=== PATIENT | male | born 2005 | race Hispanic/Latino ===

== ENCOUNTER 2024-09-10 22:02 | Inpatient (IN) | payer OTHER, SELFPAY ==
[2024-09-10 18:55] VITALS: BP 108/58
[2024-09-10 19:21] VITALS: BMI 25.8
--- NOTE | 2024-09-10 19:37 | ED.GENMED ---
History of Present Illness
General
Chief Complaint: Cold/Flu/URI Symptoms
Source: patient
Exam Limitations: none
Time Seen by Provider: 09/10/24 19:09
History of Present Illness
History of Present Illness:
This is a 19 year old male that comes in with c/o fever and cough. States that he has had a fever for 3 days with a cough. States that he gets SOB and has some chest discomfort with breathing. States that he had chills with the fever and a little
diarrhea today. States that he has a headache with occasional dizziness. States that he went to yesterday and they gave him Amoxicillin for which he has had 2 doses. Denies any abd pain, nausea, vomiting, urinary burning.
Past History
Past History
ED Past Medical History: None; Negative Asthma, HTN, Hypercholesterolemia or NIDDM
ED Past Surgical History: None
Social History
Tobacco: Non-smoker
Alcohol: None
Personal: Single
Living: with family
Review of Systems
Review of Systems
All Other Systems: ROS reviewed and negative except as documented in HPI and ROS
Constitutional: Reports fever and chills
EENT: Reports no symptoms
Respiratory: Reports cough and trouble breathing
Cardiac: Reports chest pain (with breathing and coughing)
ABD/GI: Reports diarrhea; Denies abdominal pain, nausea or vomiting
: Reports no symptoms; Denies dysuria, frequency or urgency
Musculoskeletal: Reports no symptoms
Skin: Reports no symptoms
Neurological: Reports dizzy (occasional) and headache
Psychiatric: Reports no symptoms
Phy Exam
General Physical Exam
General Presentation: mild distress
General age: appears stated age
General Skin: warm, dry and pale
General Habitus: normal
General Mental: alert
General Hydration: appears well hydrated
ENT Exam
ENT Exam: TM's normal, pharynx normal and neck supple
Eye Exam
Eye Exam: EOMI
Cardiovascular Exam
Cardiovascular Exam: no edema, no murmur, normal peripheral pulses and tachycardia
Pulmonary Exam
Pulmonary Exam: lungs clear, no respiratory distress, no rales, chest non tender, no crackles, no rhonchi, no wheezing and other (Dry cough noted)
Gastrointestinal Exam
Gastrointestinal Exam: normal bowel sounds, non tender, soft, no organomegaly, no pulsatile mass and non distended
Musculoskeletal Exam
Musculoskeletal Exam: full ROM and no edema
Skin Exam
Skin Exam: warm/dry, no rash, no petechia and pallor
Psychiatric Exam
Psychiatric Exam: normal mood/affect
Sepsis
Sepsis Screening
Sepsis Assessment: Sepsis Ruled Out
Sepsis Screen
Sepsis Screen: Sepsis Ruled Out
Date: 09/10/24
Time: 20:59
Course
Orders/Labs/Results
Orders:
Orders
09/10/24 19:36
0.9% Sodium Chloride 1000 ml [Nss] 1,000 ml IV BOLUS
Acetaminophen [Tylenol] 1,000 mg PO NOW STA
CR Chest - 2 Views Urgent
Comment:
Reason For Exam: Fever, cough
09/10/24 19:40
COVID-19 Antigen Urgent
Source: Nasal Swab
Complete Blood Count/With Diff Urgent
Comprehensive Metabolic Panel Urgent
Influenza A+B Rapid Molecular Urgent
MATTIE Source: Nasal Swab
Specimen Description:
09/10/24 19:44
Lactic Acid Urgent
Abnormal Lab Results
09/10/24
19:40
Hct 37.2 L %
(39.0-52.0)
MCV 79.1 L fL
(80.0-94.0)
MPV 11.1 H fL
(7.4-10.4)
Absolute Neuts (auto) 8.7 H 10^3/uL
(1.4-6.5)
Absolute Lymphs (auto) 0.7 L 10^3/uL
(1.2-3.4)
Neutrophils % 86.6 H %
(42.2-75.2)
Lymphocytes % 7.0 L %
(20.5-51.1)
Carbon Dioxide 18 L mmol/L
(22-30)
Creatinine 0.6 L mg/dL
(0.7-1.3)
Glucose 130 H mg/dl
(70-99)
SARS-CoV-2 Antigen Positive A
(Negative)
09/10/24 19:40
09/10/24 19:40
Hyperglycemia. Positive for COVID, Carbon dioxide low. Anion gap 14, Lactic acid normal at 1.9
Vital Signs
Initial and Last Documented VS:
Initial Vital Signs
Temp Pulse Resp BP Pulse Ox
103 F H 130 20 108/58 95
09/10/24 18:55 09/10/24 18:55 09/10/24 18:55 09/10/24 18:55 09/10/24 18:55
Last Documented Vital Signs
Temp Pulse Resp BP Pulse Ox
103 F H 120 38 108/58 95
09/10/24 18:55 09/10/24 19:45 09/10/24 19:45 09/10/24 18:55 09/10/24 19:45
MDM/Problems Addressed
Differential Diagnosis Includes:
PNA, COVID, Influenza,
MDM/Problems Addressed:
This is a 19 year old male that comes in with c/o fever and cough. States that this started 3 days ago. Patient went to yesterday and was given Amoxicillin. States that he is SOB with the coughing.
will check labs, chest x-ray, COVID and influenza. Will give IV fluids and Tylenol.
back into see patient. Explained that his Chest x-ray shows that he has a left lower and middle lobe Pneumonia. Patient may also have new onset Diabetes. states that his mom is a diabetic. Will start on IV antibiotics and admit patient.
Hospitalist notified.
Chronic conditions affecting care:
NA
Acute Exacerbation and/or Progression of Chronic Illness:
NA
*Radiology
Radiology exam reviewed: radiology read reviewed (Chest-severe left lower lobe pneumonia. Moderate left upuper lobe Pneumonia. Moderate scoliotic curvature of the thoracolumbar spine)
*Pulse Oximetry
Patient hypoxic: no
*EKG
Interpreted by ED Provider?: NA
Rate: EKG- N/A
*Roll On Worker Interpretation
Rate: tachycardiac
Heart Rate: 126
Rhythm: sinus tachycardia
*Critical Care Note
Total Time (30-74mins, 75-104mins- exclusive of procedures): Not Applicable
ED Attending Note
-
Portions of this chart may have been created with voice recognition software.� Occasional wrong word or��sound alike� substitutions may have occurred due to the inherent limitations of voice recognition software.
Discharge Plan
Departure
Patient Disposition: Admit
Date of Disposition: 09/10/24
Time of Disposition: 20:57
Admit to: Med/Surg
Presentation/result/management discussed w/ accepting MD/DO: Hospitalist
Patient with high blood pressure during this ER visit?: No
Condition: Good
Discharge Problem:
Left lower and middle Pneumonia, COVID, Acute hyperglycemia
Referrals:
UNKNOWN - PT DOES,NOT KNOW [Family Provider] -
Interventions
Interventions:
*Risk Screen - Suicide Last Done: 09/10/24 19:21
*General Assessment Last Done: 09/10/24 18:55
*Neglect/Abuse Screening Last Done: 09/10/24 19:21
ED- Fall Risk Assessment Last Done: 09/10/24 19:21
*ED COVID-19 Vaccine History Last Done: 09/10/24 18:55
ED- Pulmonary Assessment Last Done: 09/10/24 19:21
Discharge Date and Time
Print Language: ICELANDIC
[2024-09-10] MEDS: NSS 1000 IV ×3 (19:39→23:11)
[2024-09-10] MEDS: TYLENOL 1000 MG PO (19:43)
[2024-09-10 19:46] LABS: % Basophils 0.2 % (0-2); % Immature Granulocytes 0.3 % (0-0.5); % Monocytes 5.9 % (1.7-9.3); % Neutrophils 86.6 % (42.2-75.2); Absolute Lymphocytes 0.7 10^3/uL (1.2-3.4); Absolute Monocytes 0.6 10^3/uL (0.1-0.6); Absolute Neutrophils 8.7 10^3/uL (1.4-6.5); Hematocrit 37.2 % (39.0-52.0); Hemoglobin 13.7 g/dL (13.0-18.0); Mean Corp Hgb Conc. 36.8 g/dL (33.0-37.0); Mean Corpuscular Hgb 29.1 pg (27.0-31.0); Mean Corpuscular Volume 79.1 fL (80.0-94.0); Mean Platelet Volume 11.1 fL (7.4-10.4); Nucleated Red Blood Cells % 0 % (-); Platelet Count 168 10^3/uL (130-400); Red Cell Dist. Width 12.6 % (11.5-14.5); White Blood Cell Count 10.1 10^3/uL (4.8-10.8)
[2024-09-10 20:03] LABS: COVID-19 Antigen Positive (Negative)
[2024-09-10 20:09] LABS: Lactic Acid 1.9 mmol/L (0.7-2.0)
[2024-09-10 20:13] LABS: ALT (SGPT) 36 U/L (0-50); AST (SGOT) 44 U/L (17-59); Alkaline Phosphatase 53 U/L (38-126); Blood Urea Nitrogen 10 mg/dl (9-20); Calcium 8.7 mg/dl (8.4-10.2); Carbon Dioxide 18 mmol/L (22-30); Chloride 103 mmol/L (98-107); Estimated Creatinine Clearance > 125 ml/min; Glucose 130 mg/dl (70-99); Potassium 3.6 mmol/L (3.5-5.1); Sodium 135 mmol/L (135-145); Total Bilirubin 1.3 mg/dl (0.2-1.3); Total Protein 6.7 g/dl (6.3-8.2); eGFR > 60.00
[2024-09-10 20:24] VITALS: BP 103/63
[2024-09-10 21:00] VITALS: BP 110/65
--- NOTE | 2024-09-10 21:20 | HPS.HSE ---
Family Physician
-
Family Physician: NOT KNOW UNKNOWN - PT DOES
Chief Complaint
-
Cough and Shortness of Breath
History of Present Illness
Patient is a 19 y/o male past medical history of scoliosis who presents with cough, shortness of breath and fever. Patient reports symptoms started about 3 days ago. He was seen at an urgent care yesterday and he was prescribed Augmentin. He notes
symptoms worsened prompting him to come to the emergency department for evaluation. He reports cough is mostly dry. He reports significant shortness of breath, and some dizziness. In the ED he was found to have a feers of 103F. He denies history
of asthma, or other lung conditions. He denies smoking or vaping.
Medical History
Past Medical History
Past Medical History: Reports Other
Additional Past Medical History:
Scoliosis
Past Surgical History: Reports None
Social History
Tobacco: Non-smoker
Alcohol: None
Drug: None
Family History
Family History: Other (Mother: DM)
Allergies / Home Medications
Allergies reflects when Allergies were last updated in [facility].
Home Medications with original date entered in [facility]
Allergy/Medication List:
Allergies
Allergy/AdvReac Type Severity Reaction Status Date / Time
No Known Allergies Allergy Unverified 01/04/11 19:14
Home Medications
amoxicillin 875 mg-potassium clavulanate 125 mg tablet 1 tab PO BID 09/10/24
dextromethorphan-guaifenesin ER 60 mg-1,200 mg tab,extend release,12hr (Mucinex DM) 1 tab PO Q12H 09/10/24
ibuprofen 200 mg tablet (Advil) 400 mg PO Q6HPRN PRN mild pain/fever 09/10/24
Review of Systems
-
Unable to obtain full review of systems at this time due to: Acuity
Constitutional: Reports Fever
Respiratory: Reports Cough and Trouble Breathing
Cardiac: Denies Chest Pain or Palpitations
Physical Exam
Vital Signs
Vital Signs
Temp Pulse Resp BP Pulse Ox
103 F H 108 35 103/63 95
09/10/24 18:55 09/10/24 20:45 09/10/24 20:45 09/10/24 20:24 09/10/24 20:45
Physical Exam
General: Well Developed, Well Nourished and Respiratory Distress (Notable Tachypnea, Significant conversational dyspnea)
HEENT: NormoCephalic, Atraumatic and Oxygen (Nasal Cannula at 2-3L)
Respiratory: Rhonchi (Particularly on the left) and Crackles (Bilaterally)
Cardiac: S1/S2 and Regular Rhythm
GI: Soft and Non Tender
Rectal: Deferred by Provider
Musculoskeletal: No Clubbing, No Cyanosis and No Edema
Skin: Warm and Dry
Neuro: Awake, Alert, Oriented and Nonfocal/grossly intact
Psych: Calm
Laboratory Results
-
09/10/24 19:40
09/10/24 19:40
Laboratory Results
Lactic Acid 1.9 mmol/L (0.7-2.0) 09/10/24 19:44
Total Bilirubin 1.3 mg/dl (0.2-1.3) 09/10/24 19:40
AST 44 U/L (17-59) 09/10/24 19:40
ALT 36 U/L (0-50) 09/10/24 19:40
Alkaline Phosphatase 53 U/L (38-126) 09/10/24 19:40
Data Reviewed
-
Diagnostic Radiology: Report Reviewed by me
Lab Data: Labs Reviewed by me
Impression/Plan
-
Sepsis secondary to Pneumonia, suspect COVID-19 viral pneumonia with possible super-imposed bacteria pneumonia
-Consult Pulmonary and Infectious Disease
-Check procalcitonin
-Continue supplemental oxygen
-Continue ceftriaxone and azithromycin
-Continue Decadron
-Consider Remdesivir - Will defer decision to Pulmonary/ID
DVT proph: Lovenox
Code Status: Full Code
--- NOTE | 2024-09-10 21:42 | W.PN.UPDATE ---
Update Note
Progress Note Update
This note serves as an addendum to the H&P by counterintelligence/humint specialist DANNY sivan HUGHES
HPI
19M Non smoker No significant PMHX seen at ER:
- fever for 3 days with a dry cough
- associated SOB and has some chest discomfort with breathing.
- POS chills with the fever and a little diarrhea today.
- headache with occasional dizziness
Seen [facility] yesterday and they gave him Amoxicillin for which he has had 2 doses.
ROS : Denies any abd pain, nausea, vomiting, urinary burning.
Reviewed VS:
Vital Signs
Temp Pulse Resp BP Pulse Ox
103 F H 113 30 110/65 95
09/10/24 18:55 09/10/24 21:30 09/10/24 21:30 09/10/24 21:00 09/10/24 21:30
PE
Gen: toxic looking , dyspnic with speech
HEENT: anicteric
Neck: supple
Lungs: tachypnic , symmetric AE, extensive ronchii at Lt chest
Cor: tacycardic S1 S2
Abdomen: benign exam
BATCH DUMPER: AAO3
MS: no edema
Psych: approrpriate
Data
09/10/24
19:40
WBC 10.1
Hgb 13.7
Plt Count 168
Carbon Dioxide 18 L
Creatinine 0.6 L
eGFR > 60.00
SARS-CoV-2 Antigen Positive A
09/10/24 09/10/24 09/10/24
19:40 19:44 21:25
Lactic Acid 1.9
Total Bilirubin 1.3
AST 44
ALT 36
Alkaline Phosphatase 53
Procalcitonin Pending
CXR:
1. SEVERE LEFT LOWER LOBE PNEUMONIA.
2. Moderate left upper lobe pneumonia.
3. Moderate scoliotic curvature of the thoracolumbar spine
ASSESSMENT & PLAN
Sepsis due to acute viral Covid illness: Onset Day 3
Acute viral Covid syndrome
PNA suspect viral rather than secondary bacterial infection
Acute Hypoxic RF due to PNA on 2 L NCx in low 90s
Dyspneic with speech
Vax HX: last vax was 2021. No booster since
- Titrate O2 to keep POx > 94
- IV Decadron 6mg daily
- Empiric IV CFTX and Azithromycin
- can check PCT but suspect will be elevated
- Pul and ID consult for indication of Remdesivir ?
HX Scoliosis ? underlying restrictive lug dz
DVT Px: LMWH
Full code
IMU
[2024-09-10 22:00] VITALS: BP 114/63
[2024-09-10] MEDS: ROCEPHIN 1000 MG IV (22:11)
[2024-09-10] MEDS: DECADRON 6 MG IV (22:15)
[2024-09-10] MEDS: ZITHROMAX INFUSION 250 IV (22:17)
[2024-09-10 22:57] LABS: Procalcitonin 0.59 ng/ml (0.0-0.25)
[2024-09-10 23:02] VITALS: BP 107/67
--- NOTE | 2024-09-10 23:30 | PTCARENOTE ---
Pt arriving from ED on 2L NC SPO2 94%. Upon exertion Pt becoming dyspneic and tachycardic into the 120's. Pt AAOx3. Education given. Pt has no complaints at this time. Call quezada within reach.
[2024-09-11] VITALS (15 sets, daily range): BP systolic 90–137; BP diastolic 61–88; PULSE 93–108; BMI 26.2
[2024-09-11 04:40] LABS: % Basophils 0.1 % (0-2); % Immature Granulocytes 0.4 % (0-0.5); % Lymphocytes 5.6 % (20.5-51.1); % Monocytes 3.3 % (1.7-9.3); % Neutrophils 90.6 % (42.2-75.2); Absolute Lymphocytes 0.5 10^3/uL (1.2-3.4); Absolute Monocytes 0.3 10^3/uL (0.1-0.6); Absolute Neutrophils 7.2 10^3/uL (1.4-6.5); Hematocrit 35.9 % (39.0-52.0); Hemoglobin 12.9 g/dL (13.0-18.0); Mean Corp Hgb Conc. 35.9 g/dL (33.0-37.0); Mean Corpuscular Hgb 29.6 pg (27.0-31.0); Mean Corpuscular Volume 82.3 fL (80.0-94.0); Mean Platelet Volume 10.9 fL (7.4-10.4); Nucleated Red Blood Cells % 0 % (-); Platelet Count 153 10^3/uL (130-400); Red Blood Cell Count 4.36 10^6/uL (4.70-6.10); Red Cell Dist. Width 12.7 % (11.5-14.5)
[2024-09-11 05:01] LABS: Blood Urea Nitrogen 8 mg/dl (9-20); Calcium 8.1 mg/dl (8.4-10.2); Carbon Dioxide 17 mmol/L (22-30); Chloride 107 mmol/L (98-107); Estimated Creatinine Clearance > 125 ml/min; Glucose 141 mg/dl (70-99); Potassium 3.9 mmol/L (3.5-5.1); Sodium 139 mmol/L (135-145); eGFR > 60.00
--- NOTE | 2024-09-11 07:58 | W.PN.HOSP.TC ---
Today's Communication/Plan
-
see plan
Assessment / Plan
Assessment / Plan
Sepsis secondary to Pneumonia, suspect COVID-19 viral pneumonia with possible super-imposed bacteria pneumonia
-Consult Pulmonary and Infectious Disease
-Procalcitonin 0.59
-Continue supplemental oxygen
-Continue ceftriaxone and azithromycin
-Continue Decadron
-Consider Remdesivir - Will defer decision to Pulmonary/ID
DVT proph: Lovenox
Code Status: Full Code
Anticipated Discharge: 24 - 48 hours
Subjective/Interval History
-
Date of Service: September 11, 2024
feeling ok
significant cough with inspiration
no further fevers overnight
Objective Data
-
Labs:
Laboratory Results
09/10/24 09/11/24
19:40 04:21
WBC 8.0
Hgb 12.9 L
Hct 35.9 L
Plt Count 153
Sodium 135 139
Potassium 3.6 3.9
Chloride 103 107
Carbon Dioxide 18 L 17 L
BUN 10 8 L
Creatinine 0.6 L 0.5 L
Glucose 130 H 141 H
Calcium 8.7 8.1 L
Total Bilirubin 1.3
AST 44
ALT 36
Alkaline Phosphatase 53
Vital Signs:
Vital Signs
Temp Pulse Resp BP Pulse Ox
99.1 F 99 30 118/69 95
09/11/24 03:45 09/11/24 06:00 09/11/24 06:00 09/11/24 06:00 09/11/24 06:00
I&O
09/10/24 09/11/24 09/12/24
06:59 06:59 06:59
Intake Total 1780 / 1780
Output Total 500 / 500
Balance 1280 / 1280
Review of Systems
-
History Source: Patient
All other systems: Reviewed and negative
Physical Exam
-
General: No Apparent Distress and Other (frequent cough)
HEENT: PERRLA
Respiratory: Other (cough with inspiration, no wheezing)
Cardiac: Regular Rhythm and S1/S2
GI: Soft and Nontender
Musculoskeletal: No Edema
Skin: Warm and Dry; Negative Rash
Neuro: AO x 3
Psych: Calm
Data Reviewed
-
Diagnostic Radiology: Report Reviewed by me
Labs: Labs Reviewed by me
[2024-09-11] MEDS: TYLENOL 650 MG PO (08:28)
[2024-09-11] MEDS: MUCINEX 600 MG PO ×2 (08:29→21:50)
[2024-09-11] MEDS: DECADRON 6 MG PO (08:29)
[2024-09-11] MEDS: TESSALON PERLES 200 MG PO (08:30)
--- NOTE | 2024-09-11 09:30 | CON.ID ---
Addendum entered and electronically signed by Esteban Hernandez, 09/11/24 11:27:
I personally performed a history and physical exam of the patient and discussed management with the resident. I reviewed the resident's note and agree with the documented findings and plan of care HPI/CC.
No history of hemoptysis. Minimal sputum at present. Reports sisters also with upper respiratory tract infection symptoms.
Currently appears comfortable.
Continue with current antimicrobial therapy (ceftriaxone/Azithromycin).
Will begin Paxlovid.
Check Legionella and pneumococcal urinary antigens.
Await sputum culture.
Original Note:
Chief Complaint / Past History
Chief Complaint
Cough and shortness of breath
History of Present Illness
This is a 19 year old male patient with PMH scoliosis who presented to the ED with SOB, fever and cough. He states that he had a non productive cough and difficulty breathing 3 days ago which had prompted him to go to the urgent care. At , he had
a COVID test done (which was negative) along with being given Augmentin. When he found that he did not improve this prompted him to arrive to ED.
Upon arrival, he was found to have a fever of 103. CXR showed severe left lobe pneumonia with moderate left upper lobe pneumonia. COVID testing was positive. He denies any chills, abdominal pain, nausea or vomiting. His past vaccination history for
COVID was last in 2021 with no boosters since then.
Past History
Past Medical History: Other (Scoliosis)
Past Surgical History: None
Allergy History:
No Known Allergies Allergy (Unverified 01/04/11 19:14)
Social History
Tobacco: Non-Smoker
Alcohol: None
Drug: None
Family History
Family History: Not Pertinent
Review of Systems
Vital Signs
Temp Pulse Resp BP Pulse Ox
98.6 F 99 30 118/69 95
09/11/24 07:48 09/11/24 06:00 09/11/24 06:00 09/11/24 06:00 09/11/24 06:00
Physical Exam
Lab / Diagnostic Study Results
09/11/24 04:21
09/11/24 04:21
Abs Immat Gran (auto) 0.0 10^3/uL (0-0.05) 09/11/24 04:21
Absolute Neuts (auto) 7.2 10^3/uL (1.4-6.5) H 09/11/24 04:21
Absolute Lymphs (auto) 0.5 10^3/uL (1.2-3.4) L 09/11/24 04:21
Absolute Monos (auto) 0.3 10^3/uL (0.1-0.6) 09/11/24 04:21
Absolute Basos (auto) 0.0 10^3/uL (0-0.2) 09/11/24 04:21
Immature Gran % 0.4 % (0-0.5) 09/11/24 04:21
Neutrophils % 90.6 % (42.2-75.2) H 09/11/24 04:21
Lymphocytes % 5.6 % (20.5-51.1) L 09/11/24 04:21
Monocytes % 3.3 % (1.7-9.3) 09/11/24 04:21
Eosinophils % 0.0 % (0-6) 09/11/24 04:21
Basophils % 0.1 % (0-2) 09/11/24 04:21
Lactic Acid 1.9 mmol/L (0.7-2.0) 09/10/24 19:44
Procalcitonin 0.59 ng/ml (0.0-0.25) H 09/10/24 22:08
Microbiology Results
Micro:
09/10/24 19:40 Influenza Types A & B (DENNY) - Final
Nasal Swab Negative for Influenza A & B, NAAT
Negative results must be combined with clinical observations
and patient history.
Nucleic Acid Amplification test (NAAT)performed on the
[employer] platform.
Assessment / Plan
Sepsis secondary to pneumonia�possible COVID-19 viral pneumonia with ?secondary bacterial cause
Febrile
Scoliosis
Recommendations:
-Afebrile at the time of exam
-Vaccination history: Last vaccination was in 2021 with no booster since
� White blood count within normal limits, lactic acid 1.9
� CXR: Severe left lower lobe pneumonia, moderate left upper lobe pneumonia
� Inititally started on IV ceftriaxone and azithromycin and decadron
- Sputum culture pending though pt not actively with productive cough
--- NOTE | 2024-09-11 10:43 | CON.PUL ---
Consultation
Consultation Request
Date/Time Consultation Requested: 09/11/2024-8 AM
Date/Time Consultation Performed: 09/11/2024-8:30 AM
Requesting Provider: Hospitalist
Performing Provider: Dr. Lim
Reason for Consultation: Pneumonia
Medical History
-
Chief Complaint: Shortness of breath and cough
History of Present Illness:
19-year-old male with 1 prior COVID-vaccine, never having COVID presents with cough and shortness of breath as well as fever 3 days prior to admission found to have pneumonia-pulmonary consulted for pneumonia/COVID 09/11/2024.. The patient states
that he had fevers, chills, nonproductive cough, occasionally productive, shortness of breath as well as fevers at home. He was prescribed Augmentin. He came to the emergency room and continued to have mostly a dry nonproductive cough with
shortness of breath and some dizziness. He had a fever of 103. He denies any chest pain, pleurisy, hemoptysis, abdominal pain, nausea, weakness, unintentional weight loss, leg swelling.
Past Medical History
Past Medical History: None (Specifically no history of hypertension, hyperlipidemia, coronary, pulmonary, renal, gastrointestinal or neurologic conditions)
Past Surgical History: None
Social History
Tobacco: Non-smoker
Alcohol: None
Drug: None
Living: With Family
Occupational Exposures: No known asbestos exposure
Environmental Exposures: No known tuberculosis exposure
Family History
Family History: Other (Mother-diabetes)
Allergies / Home Medications
Allergies
Allergy/AdvReac Type Severity Reaction Status Date / Time
No Known Allergies Allergy Unverified 01/04/11 19:14
Home Medications
�Medication �Instructions �Recorded �Confirmed �Last Taken �Type
amoxicillin 875 mg-potassium 1 tab PO BID Infection 09/10/24 09/10/24 09/10/24 History
clavulanate 125 mg tablet
dextromethorphan-guaifenesin ER 60 1 tab PO Q12H Cough 09/10/24 09/10/24 09/10/24 History
mg-1,200 mg tab,extend
release,12hr (Mucinex DM)
ibuprofen 200 mg tablet (Advil) 400 mg PO Q6HPRN PRN mild 09/10/24 09/10/24 09/10/24 History
pain/fever
Review of Systems
-
Unable to Obtain full review of systems at this time due to: Other (Per HPI)
Vitals / Labs / Diagnostic Testing
Vital Signs
Temp Pulse Resp BP Pulse Ox
98.6 F 99 30 118/69 95
09/11/24 07:48 09/11/24 06:00 09/11/24 06:00 09/11/24 06:00 09/11/24 06:00
Lab Data
09/11/24 04:21
09/11/24 04:21
Microbiology
09/10/24 19:40 Nasal Swab Influenza Types A & B (DENNY) - Final
Negative for Influenza A & B, NAAT
Negative results must be combined with clinical observations
and patient history.
Nucleic Acid Amplification test (NAAT)performed on the
[employer] platform.
Diagnostic Testing:
Physical Exam
-
Exam:
Well-nourished and well-developed in no apparent distress
HEENT-atraumatic, normocephalic
Neck-supple, no JVD, no bruit
Heart-regular rate and rhythm-no murmurs, rubs or gallops
Chest with crackles at the bases and few rhonchi
Back without tenderness
Abdomen-soft, nontender, nondistended, no hepatosplenomegaly
Extremities-no cyanosis, clubbing, edema and good peripheral pulses
Integument-intact, no rashes, lesions or ecchymosis
Neurology-alert and oriented, nonfocal motor and sensory exam
Assessment
-
19-year-old male with 1 prior COVID-vaccine, never having COVID presents with cough and shortness of breath as well as fever 3 days prior to admission found to have pneumonia-pulmonary consulted for pneumonia/COVID 09/11/2024.
Mpzfgbkdi-wppnpebzq-uygfkdls
COVID positive-09/10/2024
Lymphopenia
Hyperglycemia
Metabolic acidosis
Conditions present prior to admission:
None
Plan
Respiratory decompensation likely due to underlying COVID infection with subsequent bacterial [id number]-[id number]-[id number]
Supplemental oxygen as needed
Mucolytics
Nebulizers if needed
Aspiration precautions
Follow radiographically
Check cultures
Ceftriaxone and azithromycin initiated
Influenza negative
Sputum culture if able to produce
Decadron 6 mg IV daily initiated
Suspect pneumonia is bacterial and minimally viral-consider Paxlovid-or observe off antivirals
Infectious disease consultation pending
Monitor blood sugar
Insulin supplementation as needed
DVT prophylaxis-on Lovenox
Nutrition
Early mobilization
Outpatient pulmonary follow-up to ensure radiographic clearing
Diagnostic data:
Chest x-ray 09/10/2024-left lower lobe pneumonia, moderate left upper lobe pneumonia
Data Reviewed
-
Radiology: Image personally visualized and interpreted and Report reviewed by me
Medical Tests (Nuc Med, Echo etc): Report reviewed by me
Labs: Labs reviewed by me
Old Records: Reviewed
Total Time Spent with Patient (in minutes): 55
[2024-09-11] MEDS: PAXLOVID 2X150 MG-100 MG DOSE PACK 1 DOSE PO ×2 (12:16→21:51)
--- NOTE | 2024-09-11 12:29 | PTCARENOTE ---
Patient is on room air at this time, puulse ox 95%. Paxlovid dose administered. Patient is compliant with medication regimen. Good appetite. Pain on abdomen when coughing relieved with Tylenol. Family at bedside.
--- NOTE | 2024-09-11 12:45 | CM ---
Patient who is Covid +. Room air. Receiving Paxlovid, IV Abx.
Spoke with patient who resides with his parents in a one story house.
He was independent in ADLs & ambulation.
The patient was active and was attending [employer] studying Biology.
He does not drive.
The patient has no DME.
He has no PCP and goes to [facility].
Pharmacy - [facility] [address], [place]
Noting self pay status.
Spoke with Anita [facility]; patient completed MA application that she will be submitting today. She feels he is likely to qualify for MA.
Patient denies any food/housing/utility or transportation insecurities.
No CM d/c needs identified.
Plan home.
--- NOTE | 2024-09-11 15:13 | PTCARENOTE ---
Patient asked to go to the bathroom. Nurse walked patient to the bathroom and he had an unsteady gait. Nurse asked family about his unsteadiness and the family stated that this started as he was an adult, stated 'he is a patient of Raevn Esqueda.'.
Notified Dr. Chu of ambulatory issues. PT consulted and orthostatics will be completed.
[2024-09-11] MEDS: NSS 500 IV (15:37)
[2024-09-11 17:40] LABS: Vitamin B12 313 pg/ml (239-931)
[2024-09-11] MEDS: LOVENOX 40 MG SC (21:50)
[2024-09-11] MEDS: ROCEPHIN 1000 MG IV (21:52)
[2024-09-11] MEDS: STERILE WATER FOR INJECTION 10 ML IV (21:52)
[2024-09-11] MEDS: ZITHROMAX INFUSION 250 IV (21:53)
[2024-09-12] VITALS (11 sets, daily range): BP systolic 86–128; BP diastolic 65–80; PULSE 96; O2SAT 93
--- NOTE | 2024-09-12 02:20 | PTCARENOTE ---
Pt mother stayed with Pt throughout night. Pt had no complaints of pain at this time. Pt vitals remaining stable at this time. PT SPO2 94% on 3L NC. Pt cough is frequent. Call quezada within reach. Assessment care and vitals as charted.
[2024-09-12 06:47] LABS: Blood Urea Nitrogen 13 mg/dl (9-20); Calcium 8.6 mg/dl (8.4-10.2); Carbon Dioxide 22 mmol/L (22-30); Chloride 106 mmol/L (98-107); Estimated Creatinine Clearance > 125 ml/min; Glucose 129 mg/dl (70-99); Potassium 4.2 mmol/L (3.5-5.1); Sodium 141 mmol/L (135-145); eGFR > 60.00
--- NOTE | 2024-09-12 08:32 | W.PN.HOSP.TC ---
Today's Communication/Plan
-
approaching DC
PT Eval
continue Decadron and Paxlovid
Assessment / Plan
Assessment / Plan
Sepsis secondary to Pneumonia, suspect COVID-19 viral pneumonia with possible super-imposed bacteria pneumonia
-Consult Pulmonary and Infectious Disease
-Procalcitonin 0.59
-now off oxygen
-Continue ceftriaxone and azithromycin
-Continue Decadron
-continue Paxlovid
Ambulatory Dysfunction
-patient reports an abnormal gait since puberty, does not feel it is worse
-likely exacerbated with current illness
-obtain PT eval to assess further work-up. On exam patient with 5/5 upper and lower extremity strength
DVT proph: Lovenox
Code Status: Full Code
Anticipated Discharge: Within 24 hours
Subjective/Interval History
-
Date of Service: September 12, 2024
feeling better today
cough persistent
Objective Data
-
Labs:
Laboratory Results
09/12/24 09/12/24
04:51 06:05
Sodium Cancelled 141
Potassium Cancelled 4.2
Chloride Cancelled 106
Carbon Dioxide Cancelled 22
BUN Cancelled 13
Creatinine Cancelled 0.5 L
Glucose Cancelled 129 H
Calcium Cancelled 8.6
Vital Signs:
Vital Signs
Temp Pulse Resp BP Pulse Ox
97.5 F 88 24 122/68 93
09/12/24 07:30 09/12/24 08:00 09/12/24 08:00 09/12/24 08:00 09/12/24 08:00
I&O
09/11/24 09/12/24 09/13/24
06:59 06:59 06:59
Intake Total 1780 / 1780 2470 / 2470
Output Total 500 / 500 2900 / 2900
Balance 1280 / 1280 -430 / -430
Review of Systems
-
History Source: Patient
All other systems: Reviewed and negative
Physical Exam
-
General: No Apparent Distress and Other (frequent cough)
HEENT: PERRLA
Respiratory: Other (cough with inspiration, no wheezing)
Cardiac: Regular Rhythm and S1/S2
GI: Soft and Nontender
Musculoskeletal: No Edema
Skin: Warm and Dry; Negative Rash
Neuro: AO x 3
Psych: Calm
Data Reviewed
-
Diagnostic Radiology: Report Reviewed by me
Labs: Labs Reviewed by me
--- NOTE | 2024-09-12 08:48 | W.PN.ID1 ---
Addendum entered and electronically signed by Esteban Hernandez, 09/12/24 12:00:
I personally saw and evaluated the patient. I reviewed the resident�s note and agree with findings and plan as documented in the resident�s note.
Original Note:
Date of Service
Date of Service: September 12, 2024
Today's Communication
Continue Paxlovid and antibitoics
Assessment / Plan
Sepsis secondary to pneumonia�possible COVID-19 with subsequent bacterial fpzozorug-xkgozytfb-elazjvfn
Febrile
Scoliosis
Recommendations:
-Afebrile at the time of exam
-Vaccination history: Last vaccination was in 2021 with no booster since
� White blood count within normal limits, lactic acid 1.9
� CXR 09/10: Severe left lower lobe pneumonia, moderate left upper lobe pneumonia
- Sputum culture pending though pt with minimal sputum production
-Negative urine antigen for Legionella and S.pneumoniae
� Discontinue IV ceftriaxone
-Transition to PO cefdinir and PO azithromycin
- Weaning off oxygen
-Continue Paxlovid, tolerating well
Subjective / Review of Systems
Patient feels he is improving though he still experiences SOB when walking short distances. He denies any fever or chills.
Review of Systems: No Fever, No Chills, No Nausea and No Vomiting
Vital Signs / Physical Exam
Vital Signs
Vital Signs
Temp Pulse Resp BP Pulse Ox
97.5 F 88 24 122/68 93
09/12/24 07:30 09/12/24 08:00 09/12/24 08:00 09/12/24 08:00 09/12/24 08:00
Physical Exam
Constitutional: No Acute Distress
Cardiovascular: Regular Rate and S1/S2
Pulmonary: Other (cough +)
Gastrointestinal: Soft, Non Tender and Non Distended
Skin: Warm and Dry
Neurological: Awake, Alert and Oriented
Objective Data
Lab Data
Lab Results
09/11/24 04:21
09/12/24 06:05
Estimated Creat Clear > 125 ml/min 09/12/24 06:05
Lactic Acid 1.9 mmol/L (0.7-2.0) 09/10/24 19:44
Total Bilirubin 1.3 mg/dl (0.2-1.3) 09/10/24 19:40
AST 44 U/L (17-59) 09/10/24 19:40
ALT 36 U/L (0-50) 09/10/24 19:40
Alkaline Phosphatase 53 U/L (38-126) 09/10/24 19:40
Most recent labs reviewed.
Micro Results:
09/11/24 16:48 Legionella Urinary Antigen - Final
Urine Negative for Legionella pneumophila Serogroup 1 antigen.
A negative result does not rule out the possiblity of
Legionella infection due to other serogroups or species of
Legionella. Clinical correlation is recommended.
Streptococcus pneumoniae Antigen (M - Final
Negative for Streptococcus pneumoniae antigen.
A negative result does not exclude infection with
Streptococcus pneumoniae. Clinical correlation is
recommended.
09/11/24 16:48 Respiratory Culture - Pending
Sputum Gram Stain - Pending
09/10/24 19:40 Influenza Types A & B (DENNY) - Final
Nasal Swab Negative for Influenza A & B, NAAT
Negative results must be combined with clinical observations
and patient history.
Nucleic Acid Amplification test (NAAT)performed on the
[employer] platform.
[2024-09-12] MEDS: DECADRON 6 MG PO (09:59)
[2024-09-12] MEDS: MUCINEX 600 MG PO ×2 (09:59→19:57)
[2024-09-12] MEDS: PAXLOVID 2X150 MG-100 MG DOSE PACK 1 DOSE PO ×2 (10:00→21:41)
--- NOTE | 2024-09-12 10:10 | W.PN.PUL.V3 ---
Today's Communication / Plan
-
Check cultures
Wean oxygen
Increase activity
Continue antibiotics and Paxlovid
Decadron per protocol
Outpatient pulmonary follow-up to ensure pneumonia clearing
Assessment
-
19-year-old male with 1 prior COVID-vaccine, never having COVID presents with cough and shortness of breath as well as fever 3 days prior to admission found to have pneumonia-pulmonary consulted for pneumonia/COVID 09/11/2024.
Kcgpfrbdu-vzccwxxjq-cnrdfkrf
COVID positive-09/10/2024
Lymphopenia
Hyperglycemia
Metabolic acidosis
Conditions present prior to admission:
None
Plan
Respiratory decompensation likely due to underlying COVID infection with subsequent bacterial wzuhctyic-xfjrcuthq-tlmbvxez
Supplemental oxygen as needed
Mucolytics
Nebulizers if needed
Aspiration precautions
Follow radiographically
Cultures reviewed
Urine Legionella and streptococcal antigens negative,
Influenza negative
Sputum culture 09/11/2024-pending
Ceftriaxone and azithromycin initiated
Influenza negative
Sputum culture if able to produce
Decadron 6 mg IV daily initiated
Suspect pneumonia is bacterial and minimally viral-
Paxlovid initiated by infectious disease
Infectious disease consultation-correspondence reviewed
Monitor blood sugar
Insulin supplementation as needed
DVT prophylaxis-on Lovenox
Nutrition
Early mobilization
Reviewed with primary team
Outpatient pulmonary follow-up to ensure radiographic clearing
Diagnostic data:
Chest x-ray 09/10/2024-left lower lobe pneumonia, moderate left upper lobe pneumonia
Subjective Data
-
Date of Service:
Date of Service: September 12, 2024
Chief Complaint: Pulmonary Follow Up and Dyspnea Follow Up
Subjective:
Cough overall slightly improved, does not complain of significant shortness of breath, chest pain, abdominal pain
Review of Systems
General: Other (Per HPI)
Objective Data
Data Reviewed
Vital Signs / I&O:
Vital Signs
Temp Pulse Resp BP Pulse Ox
97.5 F 97 13 122/68 93
09/12/24 07:30 09/12/24 10:00 09/12/24 10:00 09/12/24 08:00 09/12/24 10:00
Intake and Output
09/11/24 09/12/24 09/13/24
06:59 06:59 06:59
Intake Total 1780 / 1780 2470 / 2470
Output Total 500 / 500 2900 / 2900
Balance 1280 / 1280 -430 / -430
SaO2: 93
Nasal Cannula flow liters per minute: 3
Physical Exam
General: Respiratory Distress (n) and Comfortable
HEENT: Normocephalic, Anicteric and Moist Mucous Membranes
Cardiovascular: Regular Rhythm
Respiratory: Wheeze (n), Crackles (Left basilar), Rhonchi, Non-Labored Respirations, Accessory Resp Muscle Use (n) and Stridor (n)
GI: Soft, Non Distended and Non Tender
Neurology: Awake, Alert and No Motor Deficits
Skin: Warm, Good Color, Cyanosis (n), Jaundice (n) and Rash (n)
Labs/Micro/Reports
Lab Data
09/11/24 04:21
09/12/24 06:05
Microbiology
09/11/24 16:48 Sputum Gram Stain - Preliminary
09/11/24 16:48 Urine Legionella Urinary Antigen - Final
Negative for Legionella pneumophila Serogroup 1 antigen.
A negative result does not rule out the possiblity of
Legionella infection due to other serogroups or species of
Legionella. Clinical correlation is recommended.
09/11/24 16:48 Urine Streptococcus pneumoniae Antigen (M - Final
Negative for Streptococcus pneumoniae antigen.
A negative result does not exclude infection with
Streptococcus pneumoniae. Clinical correlation is
recommended.
09/10/24 19:40 Nasal Swab Influenza Types A & B (DENNY) - Final
Negative for Influenza A & B, NAAT
Negative results must be combined with clinical observations
and patient history.
Nucleic Acid Amplification test (NAAT)performed on the
[employer] platform.
[2024-09-12] MEDS: ZITHROMAX 500 MG PO (15:10)
--- NOTE | 2024-09-12 15:41 | CM ---
Chart reviewed and patient was seen by physical therapy and plan is to home when stable, case specialist will follow for for any needs that may develop, tonion to follow up at the [facility]
Plan; Home with family when stable.
--- NOTE | 2024-09-12 17:39 | PTCARENOTE ---
VSS, NSR at rest, ST at times w/ activity. SaO2 remains stable off room air. Still has harsh productive cough of yellow mucus, but reports overall feeling 'better.' Update family at bedside. Continues to make needs known appropriately.
[2024-09-12] MEDS: OMNICEF 300 MG PO (19:57)
[2024-09-12] MEDS: LOVENOX 40 MG SC (19:57)
[2024-09-13] VITALS (7 sets, daily range): BP systolic 100–125; BP diastolic 59–73
--- NOTE | 2024-09-13 08:49 | W.PN.HOSP.TC ---
Today's Communication/Plan
-
OK for DC today
Assessment / Plan
Assessment / Plan
Sepsis secondary to Pneumonia, suspect COVID-19 viral pneumonia with possible super-imposed bacteria pneumonia
-Consult Pulmonary and Infectious Disease
-Procalcitonin 0.59
-now off oxygen
-Continue antibiotics for CAP
-Continue Decadron
-continue Paxlovid
-OK for DC
Ambulatory Dysfunction
-patient reports an abnormal gait since puberty, does not feel it is worse
-likely exacerbated with current illness
-discussed briefly with Neurology -and most likely gbkkruy-mfhfd-axqhn given description. patient and mother given handout in [place] and [facility] to call to discuss options of evaluation
He will follow up with for outpatient physical therapy evals
DVT proph: Lovenox
Code Status: Full Code
Anticipated Discharge: Today
Subjective/Interval History
-
Date of Service: September 13, 2024
feeling better
feels ready to go home
Objective Data
-
Vital Signs:
Vital Signs
Temp Pulse Resp BP Pulse Ox
97.3 F 62 14 100/60 92
09/12/24 23:45 09/13/24 02:00 09/13/24 02:00 09/13/24 02:00 09/13/24 02:18
I&O
09/12/24 09/13/24 09/14/24
06:59 06:59 06:59
Intake Total 2470 / 2470 480 / 480
Output Total 2900 / 2900
Balance -430 / -430 480 / 480
Review of Systems
-
History Source: Patient
All other systems: Reviewed and negative
Physical Exam
-
General: No Apparent Distress and Other (frequent cough)
HEENT: PERRLA
Respiratory: Other (cough with inspiration, no wheezing)
Cardiac: Regular Rhythm and S1/S2
GI: Soft and Nontender
Musculoskeletal: No Edema
Skin: Warm and Dry; Negative Rash
Neuro: AO x 3
Psych: Calm
Data Reviewed
-
Diagnostic Radiology: Report Reviewed by me
Labs: Labs Reviewed by me
--- NOTE | 2024-09-13 09:00 | W.DS.TRANS ---
DC Summary - [facility]
-
Discharge Instructions:
Discharge Diagnosis/Procedures hypoxic respiratory insufficiency in the setting
of COVID-19
Diet Regular
Activity As tolerated
Driving Restrictions As prior to admission
Bathing Restrictions None
Instructions:
Stand-Alone Forms:
Changes to Home Medications: Yes
Discharge Medications:
DC Medications w/original date entered in [facility]
azithromycin 250 mg tablet 500 mg (2 x 250 mg) PO DAILY #2 tabs 09/13/24
benzonatate 100 mg capsule 200 mg (2 x 100 mg) PO TIDPRN PRN cough #50 caps 09/13/24
cefdinir 300 mg capsule 300 mg PO Q12 #3 caps 09/13/24
dexamethasone 4 mg tablet 6 mg (1.5 x 4 mg) PO DAILY #6 tabs 09/13/24
guaifenesin 600 mg tablet, extended release 12 hr 600 mg PO Q12 #28 tabs 09/13/24
nirmatrelvir 300 mg (150 mg x2)-ritonavir 100 mg tablet,dose pack (Paxlovid) 5 ea PO BID #15 ea 09/13/24
Home Medication Changes
2 1/2 more days of Paxlovid to complete 5 day course (2 pills Nirmatrelvir 150mg; with ritonavir 100 mg, administered together, twice daily)
6 more days of Decadron to complete 10 day course
You have one more day of Azithromycin (take tomorrow) and 1.5 more days of Cefdinir (first dose this evening)
Pending Results: No
[2024-09-13] MEDS: DECADRON 6 MG PO (09:18)
[2024-09-13] MEDS: ZITHROMAX 500 MG PO (09:20)
[2024-09-13] MEDS: OMNICEF 300 MG PO (09:20)
[2024-09-13] MEDS: MUCINEX 600 MG PO (09:21)
[2024-09-13] MEDS: PAXLOVID 2X150 MG-100 MG DOSE PACK 1 DOSE PO (09:23)
--- NOTE | 2024-09-13 09:41 | W.PN.PUL3 ---
Addendum entered and electronically signed by Mika Dacosta MD 09/13/24 18:38:
Total time spent today was 26 minutes for this encounter. Time includes reviewing laboratory test/imaging results, reviewing pertinent medical records, obtaining and reviewing medical history, performing an appropriate exam, ordering medications,
tests and procedures. Time also includes documentation of this encounter, coordinating patient care and communicating with other healthcare professionals. Total time does not include separately billed tests performed on this date of service.
Original Note:
Today's Communication / Plan
-
Continue Decadron
Continue Paxlovid
Up OOB as tolerated
Maintain SpO2 >90-94%
Patient is being prepared for discharge home. No additional recommendations at this time - pulmonary service will now sign off. Please reconsult if there are any additional questions/concerns, or if patient's respiratory status deteriorates.
Assessment
-
19-year-old male with 1 prior COVID-vaccine, never having COVID presents with cough and shortness of breath as well as fever 3 days prior to admission found to have pneumonia-pulmonary consulted for pneumonia/COVID 09/11/2024.
Impression:
Hhunjgtxi-qkzansiyj-bovauahw
COVID positive-09/10/2024
Lymphopenia
Hyperglycemia
Metabolic acidosis
Conditions present prior to admission:
None
Plan
Respiratory decompensation likely due to underlying COVID infection with subsequent bacterial lgoncsyqz-riavleafm-pkpkvryo
Supplemental oxygen as needed to keep SpO2 >90-94%
Mucolytics
Nebulizers if needed
Aspiration precautions
Follow radiographically
Cultures reviewed
Urine Legionella and streptococcal antigens negative,
Influenza negative
Sputum culture 09/11/2024-NGTD
Ceftriaxone and azithromycin initiated --> now on cefdnir + Zithromax
Influenza negative
Decadron 6 mg PO daily initiated
Suspect pneumonia is bacterial and minimally viral-
Paxlovid initiated by infectious disease
Infectious disease consultation-correspondence reviewed
Monitor blood sugar with goal >100 and <180
Insulin supplementation as needed
DVT prophylaxis-on Lovenox
Nutrition
Early mobilization
Reviewed with primary team
Outpatient pulmonary follow-up to ensure radiographic clearing
Patient is being prepared for discharge home. No additional recommendations at this time - pulmonary service will now sign off. Thank you for allowing us to be involved in the care of this patient. Please reconsult if there are any additional
questions/concerns, or if patient's respiratory status deteriorates.
Diagnostic data:
Chest x-ray 09/10/2024-left lower lobe pneumonia, moderate left upper lobe pneumonia
Subjective Data
-
Date of Service:
Date of Service: September 13, 2024
Chief Complaint: Pulmonary Follow Up and Dyspnea Follow Up
Subjective:
Patient seen and evaluated today at bedside. Patient feels better with no acute events reported from overnight. Denies worsening SOB, denies chest pain, BARR, nausea, fevers or chills.
Review of Systems
General: Other (Negative unless mentioned above)
Objective Data
Data Reviewed
Vital Signs / I&O / Oxygen:
Vital Signs
Temp Pulse Resp BP Pulse Ox
98.4 F 100 25 125/71 92
09/13/24 10:59 09/13/24 10:52 09/13/24 10:52 09/13/24 10:52 09/13/24 10:52
Intake and Output
09/12/24 09/13/24 09/14/24
06:59 06:59 06:59
Intake Total 2470 / 2470 480 / 480
Output Total 2900 / 2900
Balance -430 / -430 480 / 480
SaO2 92
Nasal Cannula flow liters per 3
minute
Physical Exam
General: Respiratory Distress (n) and Comfortable
HEENT: Normocephalic, Anicteric and Moist Mucous Membranes
Cardiovascular: S1-S2 and Peripheral Edema (n)
Respiratory: Wheeze (n), Crackles (Left basilar), Rhonchi (left base), Non-Labored Respirations, Accessory Resp Muscle Use (n) and Stridor (n)
GI: Soft, Non Distended and Non Tender
Neurology: Awake, Alert and Tremors (n)
Skin: Warm, Dry, Cyanosis (n), Jaundice (n) and Rash (n)
Labs/Micro/Reports
Lab Data
09/11/24 04:21
09/12/24 06:05
Microbiology
09/11/24 16:48 Sputum Respiratory Culture - Preliminary
Usual Respiratory Radha
09/11/24 16:48 Sputum Gram Stain - Preliminary
09/11/24 16:48 Urine Legionella Urinary Antigen - Final
Negative for Legionella pneumophila Serogroup 1 antigen.
A negative result does not rule out the possiblity of
Legionella infection due to other serogroups or species of
Legionella. Clinical correlation is recommended.
09/11/24 16:48 Urine Streptococcus pneumoniae Antigen (M - Final
Negative for Streptococcus pneumoniae antigen.
A negative result does not exclude infection with
Streptococcus pneumoniae. Clinical correlation is
recommended.
09/10/24 19:40 Nasal Swab Influenza Types A & B (DENNY) - Final
Negative for Influenza A & B, NAAT
Negative results must be combined with clinical observations
and patient history.
Nucleic Acid Amplification test (NAAT)performed on the
[employer] platform.
--- NOTE | 2024-09-13 09:46 | CM ---
Patient who is Covid +. Room air. PT Eval noted; recommend outpatient neurology eval.
Spoke with patient who was preparing for d/c. The patient says he feels ready to go home today. He plans on following up at [facility]. His mother will provide transport home today.
No CM d/c needs identified.
Plan home today..
--- NOTE | 2024-09-13 10:00 | PTCARENOTE ---
Reviewed discharge instructions w/pt and pt mother. Other family member at bedside as well while giving discharge instructions. All questions answered and all parties expressed understanding. Pt expressed understanding of all medications and the way
they need to be taken. Pt given prescription for physical therapy from physical therapy from Dr. Chu. Reviewed follow up instructions w/ patient and family. IV site removed. Vital signs obtained. Pt left unit via wheelchair w/ PCT and family
member.
--- NOTE | 2024-09-13 15:34 | PTCARENOTE ---
received phone call from pt family regarding paxlovid prescription not being able to be filled. Message relayed to Dr. Chu via [employer] text.
--- NOTE | 2024-09-14 07:24 | W.DCSUMMARY ---
Discharge Summary
Discharge Data
Date of Admission: 09/10/24
Date of Discharge: 09/13/24
-
Pending Results: No
Hospital Course
Discharging Physician : Dr. Eliza Chu
Disposition : Home
Primary care physician : - has appointment upcoming at [facility]
Principal Discharge diagnosis : Covid-19, likely undiagnosed Sewtxkr-Bfdkf-Vfzds Disease
Hospital Course :
Mr. Deangelo Willingham is a 19 yo man with hx scoliosis and undiagnosed neurological disorder with drop foot presents to the ER with cough, shortness of breath and fever. He was found to be febrile to 103 and required supplemental O2. Covid-19
positive. Procalcitonin elevated. CXR with severe left lower lobe pneumonia. He was admitted to medicine with Pulmonary and ID consulting. He was started on Decadron, Ceftriaxone/Azithromycin and then Paxlovid by ID. He was weaned off of oxygen
an discharged with 6 more days of Decadron to complete 10 day course; 1.5 more days of antibiotics to complete a 5 day course and 2.5 more days of Paxlovid to complete a 5 day course.
Of note, patient has bilateral foot drop since puberty and has not sought medical evaluation. He saw an orthopedist in past for scoliosis and had done physical therapy. I briefly discussed case with on-call neurologist, who stated course suggests
Pjuvrdp-Sdchi-Crrac Disease and recommended follow up at an academic center. The number for [facility] was given to patient and his mother. A handout in [place] was given to patient. He was also referred to outpatient
physical therapy.
Time spent on discharge was 32 minutes.
Important imaging findings :
CXR
IMPRESSION:
1. SEVERE LEFT LOWER LOBE PNEUMONIA.
2. Moderate left upper lobe pneumonia.
3. Moderate scoliotic curvature of the thoracolumbar spine.
Procedure findings :
Discharge Plan
-
Patient Disposition: Home (Routine Discharge)
Discharge Diagnosis/Procedures: hypoxic respiratory insufficiency in the setting of COVID-19
Diet: Regular
Activity: As tolerated
Driving Restrictions: As prior to admission
Bathing Restrictions: None
Referrals:
Roni Lim MD [Active] - in two to four weeks (Dr. Lim or SC-gctjuy-jz pneumonia)
UNKNOWN - PT DOES,NOT KNOW [Family Provider] -
Additional Discharge Medication Instructions: Follow up with [facility] within the next 1-2 weeks
2 1/2 more days of Paxlovid to complete 5 day course (2 pills Nirmatrelvir 150mg; with ritonavir 100 mg, administered together, twice daily)
6 more days of Decadron to complete 10 day course
You have one more day of Azithromycin (take tomorrow) and 1.5 more days of Cefdinir (first dose this evening)
Make sure to get your flu shot when you are recovered from Covid!
Prescriptions:
New
dexamethasone 4 mg Tablet
6 mg PO DAILY Qty: 6 0RF
cefdinir 300 mg Capsule
300 mg PO Q12 Qty: 3 0RF
guaifenesin 600 mg Tablet Extended Release 12hr
600 mg PO Q12 Qty: 28 0RF
Paxlovid 300 mg (150 mg x 2)-100 mg Tablets,Dose Pack
5 ea PO BID Qty: 15 0RF
azithromycin 250 mg Tablet
500 mg PO DAILY Qty: 2 0RF
benzonatate 100 mg Capsule
200 mg PO TIDPRN PRN (Reason: cough) Qty: 50 0RF
Discontinued
ibuprofen [Advil] 200 mg Tablet
400 mg PO Q6HPRN PRN (Reason: mild pain/fever)
dextromethorphan-guaifenesin [Mucinex DM] 60-1,200 mg Tablet Extended Release 12 Hr
1 tab PO Q12H
amoxicillin-pot clavulanate [Augmentin] 875-125 mg Tablet
1 tab PO BID
Patient Comments:
09/10/24: started yesterday, to take for 10 days
Discharge Orders:
Discharge Patient (As Directed); Ordered 09/13/24
Ordered By: Eliza Chu
Discharge Date and Time
Discharge Date/Time: 09/13/24 11:50
Print Language: BELARUSIAN
== END 2024-09-13 11:50 | disposition home or self-care (01) | DRG 871 ==
LOC: IMU 22:02
PROVIDERS: Clinical Nurse Specialist Family Health; Physician Assistant Medical; ADMITTING PHYSICIAN Internal Medicine; ATTENDING PHYSICIAN Student in an Organized Health Care Education/Training Program; EMERGENCY PHYSICIAN Student in an Organized Health Care Education/Training Program; OTHER PHYSICIAN Internal Medicine Critical Care Medicine; OTHER PHYSICIAN Internal Medicine Infectious Disease
DX: A41.89 Other specified sepsis (principal); J12.82 Pneumonia due to coronavirus disease 2019; U07.1 COVID-19; E87.20 Acidosis, unspecified; D72.810 Lymphocytopenia; I10 Essential (primary) hypertension; E78.00 Pure hypercholesterolemia, unspecified; G60.0 Hereditary motor and sensory neuropathy; M21.371 Foot drop, right foot; M21.372 Foot drop, left foot; M41.9 Scoliosis, unspecified; R09.02 Hypoxemia; R06.89 Other abnormalities of breathing; R73.9 Hyperglycemia, unspecified; Z83.3 Family history of diabetes mellitus
CPT/HCPCS: 71046; 80048; 80053; 82607; 83605; 84145; 85025; 87070; 87205; 87449; 87502; 87811; 87899; 96361; 96365; 97162; 99285

== ENCOUNTER 2024-09-16 16:35 | Inpatient (IN) | payer OTHER, SELFPAY ==
[2024-09-16] VITALS (10 sets, daily range): BP systolic 111–129; BP diastolic 53–81; BMI 24.8
--- NOTE | 2024-09-16 11:44 | ED.GENMED ---
History of Present Illness
<Agatha Ledesma PA-C - Last Filed: 09/16/24 23:50>
General
Chief Complaint: Breathing Problem
Source: patient
Exam Limitations: none
Time Seen by Provider: 09/16/24 11:40
Nursing documentation reviewed up to this point in time: agreed with
History of Present Illness
History of Present Illness:
Patient is a 19 year old male recently discharged from hospital 3 days ago after a 3 day stay for pneumonia presents back to the emergency department with worsening shortness of breath and chest tightness. Patient was discharged Sunday and states
was initially feeling better until last night he had worsening shortness of breath and lightheadedness. Also endorses pain in his left chest. He does still have productive cough. Patient denies any fevers. No pain or swelling in lower legs
Patient was COVID positive during admission. He recently completed antibiotic and paxlovid course yesterday. He has 1 day left of his steroid prescription.
Past History
<Agatha Ledesma PA-C - Last Filed: 09/16/24 23:50>
Past History
ED Past Medical History: None; Negative Asthma, HTN, Hypercholesterolemia or NIDDM
ED Past Surgical History: None
Social History
Tobacco: Non-smoker
Alcohol: None
Personal: Single
Living: with family
Review of Systems
<Agatha Ledesma PA-C - Last Filed: 09/16/24 23:50>
Review of Systems
Allergies reviewed?: Yes
All Other Systems: ROS reviewed and negative except as documented in HPI and ROS
Phy Exam
<Agatha Ledesma PA-C - Last Filed: 09/16/24 23:50>
Physical Exam
Physical Exam:
Vitals: Patient's vital signs are stable. Afebrile
General: Patient is well appearing, no acute distress
Skin: Warm and dry, no rashes or lesions
Head: Normocephalic, atraumatic
Eyes: Sclera nonicteric. EOMs intact. No nystagmus.
Throat: Protecting airway
Neck: Normal ROM, no cervical spine tenderness, no meningismus
Cardiac: Regular rate and rhythm, no murmurs.
Pulm: Mildly increased respiratory effort, no wheezeing. O2 94% on room air
Abdomen: Abdomen soft. No abdominal tenderness.
Extremities: No evidence of cyanosis or edema. Negative fan sign bilaterally. Palpable DP pules.
Neuro: AAOx3. CN II-XII intact. No focal neurologic deficits.
Psychiatric: Normal affect.
Sepsis
<Agatha Ledesma PA-C - Last Filed: 09/16/24 23:50>
Sepsis Screening
Sepsis Assessment: Sepsis Ruled Out
Sepsis Screen
Sepsis Screen: Sepsis Ruled Out
Date: 09/16/24
Time: 23:50
Course
<Agatha Ledesma PA-C - Last Filed: 09/16/24 23:50>
Orders/Labs/Results
Orders:
Orders
09/16/24 11:57
CR Chest - 2 Views Urgent
Comment: recently treated pneumonia
Reason For Exam: shortness of breath, cough
09/16/24 12:08
Complete Blood Count/With Diff Urgent
Comprehensive Metabolic Panel Urgent
Manual Differential Urgent
09/16/24 12:[address] [CT Chest Pe Study] Urgent
Comment:
Reason For Exam: SOB, recent covid, recently treated for PNA
09/16/24 13:32
0.9% Sodium Chloride 500 ml [Nss] 500 ml IV BOLUS
09/16/24 Dinner
Regular
At Your Request: Full Participation
Does patient need a safe tray?: No
09/16/24 15:08
Azithromycin 500 mg/250 ml [Zithromax Infusion] 500 mg in 250 ml IV NOW
CefTRIAXone [Rocephin] 1,000 mg IV NOW STA
09/16/24 16:21
Admit/Transfer Patient As Directed
Co-Sign Provider:
Level of Care: Inpatient admission
Assign to:: Medical/Surgical
Physician / Group: brandon
Diagnosis: pneumonia
Reason for Hospitalization: pneumonia
Expected length of stay greater than two midnights?: Yes
ELOS- Estimated Length of Stay in days: 2
I certify the patient meets the requirements for IP care: Yes
Code Status As Directed
Resuscitation Status: Full Code
PRN Pain Medication Management As Directed
May give lesser potent ordered pain med per pt: Yes
preference::
Protocol:: Medication orders for pain may be administered in a
manner that supports deferring to patient preference
when the pt is:
- Requesting an ordered lesser potent pain medication.
Least to most potent pain medications are defined
as: acetaminophen < NSAID < tramadol < opioids
(morphine, oxycodone, hydromorphone).
- Requesting a lesser dose of the same medication IF
ORDERED.
- Requesting a less intrusive route of administration
if both routes are prescribed by the provider (PO <
IV).
09/16/24 18:29
0.9% Sodium Chloride 1000 ml [Nss] 1,000 ml IV 80 mls/hr
Benzonatate [Tessalon Perles] 200 mg PO TIDPRN PRN
Ipratropium/Albuterol Sulfate [Duoneb] 3 ml INH R Q4HPRN PRN
09/16/24 18:29
Activity As Directed
Activity Level: As Tolerated
Vital Signs As Directed
Frequency: Per unit guidelines
DX Deep Vein Thrombosis Video Routine
09/16/24 20:00
Heparin 5,000 units SC Q12
09/17/24 06:00
Complete Blood Count/With Diff IN AM
Comprehensive Metabolic Panel IN AM
09/17/24 08:00
Dexamethasone [Decadron] 6 mg PO DAILY
09/17/24 16:00
Azithromycin 500 mg/250 ml [Zithromax Infusion] 500 mg in 250 ml IV Q24H
CefTRIAXone [Rocephin] 1,000 mg IV Q24H
Abnormal Lab Results
09/16/24
12:08
WBC 21.5 H 10^3/uL
(4.8-10.8)
MPV 10.7 H fL
(7.4-10.4)
Abs Neuts (Manual) 18.0 H 10^3/uL
(1.4-6.5)
Segmented Neutrophils 84 H %
(42-75)
Lymphocytes (Manual) 3 L %
(20-51)
Carbon Dioxide 18 L mmol/L
(22-30)
Creatinine 0.6 L mg/dL
(0.7-1.3)
Glucose 119 H mg/dl
(70-99)
09/16/24 12:08
09/16/24 12:08
Vital Signs
Initial and Last Documented VS:
Initial Vital Signs
Temp Pulse Resp BP Pulse Ox
97.4 F 92 22 117/81 94
09/16/24 11:30 09/16/24 11:30 09/16/24 11:30 09/16/24 11:30 09/16/24 11:30
Last Documented Vital Signs
Temp Pulse Resp BP Pulse Ox
97.7 F 96 17 111/53 97
09/16/24 16:00 09/16/24 18:47 09/16/24 18:47 09/16/24 18:47 09/16/24 20:30
<Abhishek Torres, DO - Last Filed: 09/16/24 15:09>
Orders/Labs/Results
Orders:
Orders
09/16/24 11:57
CR Chest - 2 Views Urgent
Comment: recently treated pneumonia
Reason For Exam: shortness of breath, cough
09/16/24 12:08
Complete Blood Count/With Diff Urgent
Comprehensive Metabolic Panel Urgent
Manual Differential Urgent
09/16/24 12:[address] [CT Chest Pe Study] Urgent
Comment:
Reason For Exam: SOB, recent covid, recently treated for PNA
09/16/24 13:32
0.9% Sodium Chloride 500 ml [Nss] 500 ml IV BOLUS
09/16/24 Dinner
Regular
At Your Request: Full Participation
Does patient need a safe tray?: No
09/16/24 15:08
Azithromycin 500 mg/250 ml [Zithromax Infusion] 500 mg in 250 ml IV NOW
CefTRIAXone [Rocephin] 1,000 mg IV NOW STA
09/16/24 16:21
Admit/Transfer Patient As Directed
Co-Sign Provider:
Level of Care: Inpatient admission
Assign to:: Medical/Surgical
Physician / Group: brandon
Diagnosis: pneumonia
Reason for Hospitalization: pneumonia
Expected length of stay greater than two midnights?: Yes
ELOS- Estimated Length of Stay in days: 2
I certify the patient meets the requirements for IP care: Yes
Code Status As Directed
Resuscitation Status: Full Code
PRN Pain Medication Management As Directed
May give lesser potent ordered pain med per pt: Yes
preference::
Protocol:: Medication orders for pain may be administered in a
manner that supports deferring to patient preference
when the pt is:
- Requesting an ordered lesser potent pain medication.
Least to most potent pain medications are defined
as: acetaminophen < NSAID < tramadol < opioids
(morphine, oxycodone, hydromorphone).
- Requesting a lesser dose of the same medication IF
ORDERED.
- Requesting a less intrusive route of administration
if both routes are prescribed by the provider (PO <
IV).
09/16/24 18:29
0.9% Sodium Chloride 1000 ml [Nss] 1,000 ml IV 80 mls/hr
Benzonatate [Tessalon Perles] 200 mg PO TIDPRN PRN
Ipratropium/Albuterol Sulfate [Duoneb] 3 ml INH R Q4HPRN PRN
09/16/24 18:29
Activity As Directed
Activity Level: As Tolerated
Vital Signs As Directed
Frequency: Per unit guidelines
DX Deep Vein Thrombosis Video Routine
09/16/24 20:00
Heparin 5,000 units SC Q12
09/17/24 06:00
Complete Blood Count/With Diff IN AM
Comprehensive Metabolic Panel IN AM
09/17/24 08:00
Dexamethasone [Decadron] 6 mg PO DAILY
09/17/24 16:00
Azithromycin 500 mg/250 ml [Zithromax Infusion] 500 mg in 250 ml IV Q24H
CefTRIAXone [Rocephin] 1,000 mg IV Q24H
Abnormal Lab Results
09/16/24
12:08
WBC 21.5 H 10^3/uL
(4.8-10.8)
MPV 10.7 H fL
(7.4-10.4)
Abs Neuts (Manual) 18.0 H 10^3/uL
(1.4-6.5)
Segmented Neutrophils 84 H %
(42-75)
Lymphocytes (Manual) 3 L %
(20-51)
Carbon Dioxide 18 L mmol/L
(22-30)
Creatinine 0.6 L mg/dL
(0.7-1.3)
Glucose 119 H mg/dl
(70-99)
09/16/24 12:08
09/16/24 12:08
Vital Signs
Initial and Last Documented VS:
Initial Vital Signs
Temp Pulse Resp BP Pulse Ox
97.4 F 92 22 117/81 94
09/16/24 11:30 09/16/24 11:30 09/16/24 11:30 09/16/24 11:30 09/16/24 11:30
Last Documented Vital Signs
Temp Pulse Resp BP Pulse Ox
97.7 F 96 17 111/53 97
09/16/24 16:00 09/16/24 18:47 09/16/24 18:47 09/16/24 18:47 09/16/24 20:30
<Agatha Ledesma PA-C - Last Filed: 09/16/24 23:50>
MDM/Problems Addressed
Differential Diagnosis Includes:
Not limited to: pneumonia, reactive airway disease, PE, pleural effusion, pneumothorax, etc
MDM/Problems Addressed:
19 year old male presenting with worsening shortness of breath recently discharged from hospital after 3 day stay for pneumonia. No fever, exertional chest pain, hemotpysis, or lower leg edema/pain. Patient completed antibiotic course yesterday.
Patient was covid positive at time of admission. Vitals stable. Oxygen saturation of 94% on room air. Physical exam as above. Mild increase in respiratory effort, although lungs clear without any wheezing. No clinical evidence of DVT on exam. Will
check labs and obtain chest xray.
Update: Labs reviewed. Leukocytosis of 21.5. This may be secondary to corticosteroid use vs worsening infection. Otherwise no clinically significant abnormalities. CXR demonstrates improvement in LLL pneumonia. No other acute pathology. Given
persistent SOB with recent hospitalization and covid infection - will check CTA chest to better characterize improvement in pneumonia vs PE.
Update: CTA chest shows persistent consolidation in left lung extending from hilum into left lower lobe. Given patient presents with worsening symptoms and persistent pneumonia failing initial treatment - will admit patient to hospital. Patient
started on rocephin/azithromycin. Patient accepted to hospitalist service in stable condition.
Chronic conditions affecting care:
N/A
Acute Exacerbation and/or Progression of Chronic Illness:
N/A
<Agatha Ledesma PA-C - Last Filed: 09/16/24 23:50>
*Radiology
Radiology exam reviewed: preliminary read by ED provider (Opacity in LLL) and radiology read reviewed
*Pulse Oximetry
Patient hypoxic: no
*EKG
Interpreted by ED Provider?: NA
*Range Scientist Interpretation
Rate: Range Scientist- N/A
*Critical Care Note
Total Time (30-74mins, 75-104mins- exclusive of procedures): Not Applicable
<Agatha Ledesma PA-C - Last Filed: 09/16/24 23:50>
Patient Management
Discussion with other providers: Hospitalist
Escalation/DeEscalation of care consider admission/obs:
Admit for IV abx and further monitroing
ED Attending Note
<Agatha Ledesma PA-C - Last Filed: 09/16/24 23:50>
-
Portions of this chart may have been created with voice recognition software.� Occasional wrong word or��sound alike� substitutions may have occurred due to the inherent limitations of voice recognition software.
<Abhishek Torres DO - Last Filed: 09/16/24 15:09>
ED Attending Note
Patient seen and examined by attending physician: Yes
I performed a history and physical exam of patient and discussed management with resident, I reviewed resident's note and agree with documented findings and plan of care.: Yes
ED Attending Note:
I reviewed and agree with history and treatment plan by Agatha Benavides. My exam revealed 19-year-old male with cough and mild respiratory distress. Lungs reveal mild rhonchi left side. Admit to hospitalist for worsening pneumonia.
Discharge Plan
Departure
Patient Disposition: Admit
Date of Disposition: 09/16/24
Time of Disposition: 15:12
Presentation/result/management discussed w/ accepting MD/DO: Hospitalist
Discharge Problem:
Community acquired pneumonia of left lower lobe of lung, Dyspnea
Interventions
Interventions:
*Risk Screen - Suicide Last Done: 09/16/24 20:16
*General Assessment Last Done: 09/16/24 11:30
*Neglect/Abuse Screening Last Done: 09/16/24 11:30
ED- Fall Risk Assessment Last Done: 09/16/24 12:12
*ED COVID-19 Vaccine History Last Done: 09/16/24 12:03
*Nursing Disposition Last Done: 09/16/24 18:24
ED- Cardiac Assessment Last Done: 09/16/24 12:12
ED- Pulmonary Assessment Last Done: 09/16/24 12:12
Discharge Date and Time
Discharge Date/Time: 09/16/24 18:24
[2024-09-16 12:48] LABS: ALT (SGPT) 32 U/L (0-50); AST (SGOT) 28 U/L (17-59); Alkaline Phosphatase 56 U/L (38-126); Blood Urea Nitrogen 20 mg/dl (9-20); Calcium 8.6 mg/dl (8.4-10.2); Carbon Dioxide 18 mmol/L (22-30); Chloride 104 mmol/L (98-107); Estimated Creatinine Clearance > 125 ml/min; Glucose 119 mg/dl (70-99); Potassium 4.6 mmol/L (3.5-5.1); Sodium 136 mmol/L (135-145); Total Bilirubin 0.8 mg/dl (0.2-1.3); Total Protein 6.8 g/dl (6.3-8.2); eGFR > 60.00
[2024-09-16 13:12] LABS: Atypical Lymphocytes 5 %; Band Neutrophils 0 % (0-3); Hematocrit 42.5 % (39.0-52.0); Hemoglobin 15.6 g/dL (13.0-18.0); Lymphocytes 3 % (20-51); Mean Corp Hgb Conc. 36.7 g/dL (33.0-37.0); Mean Corpuscular Hgb 30.2 pg (27.0-31.0); Mean Corpuscular Volume 82.4 fL (80.0-94.0); Mean Platelet Volume 10.7 fL (7.4-10.4); Monocytes 4 % (2-9); Platelet Count 397 10^3/uL (130-400); Red Blood Cell Count 5.16 10^6/uL (4.70-6.10); Red Cell Dist. Width 12.4 % (11.5-14.5); Segmented Neutrophils 84 % (42-75); White Blood Cell Count 21.5 10^3/uL (4.8-10.8)
[2024-09-16 13:13] LABS: Metamyelocytes 2 % (-); Myelocytes 2 % (-); Normal RBC Morphology Yes; Platelets Checked Yes; Total Cells Counted 100
[2024-09-16] MEDS: NSS 500 IV (13:48)
[2024-09-16] MEDS: ROCEPHIN 1000 MG IV (15:25)
[2024-09-16] MEDS: ZITHROMAX INFUSION 250 IV (15:25)
--- NOTE | 2024-09-16 16:24 | HPS.HSE ---
Family Physician
-
Family Physician: NOT KNOW UNKNOWN - PT DOES
Chief Complaint
-
cough, shortness of breath
History of Present Illness
19-year-old male past medical history of chronic abnormal gait, amatory dysfunction presenting with shortness of breath and chest tightness.
Patient recently discharged 2 days ago for sepsis secondary pneumonia secondary to COVID with possible superinfection. He was treated with Decadron, ceftriaxone/azithromycin and Paxlovid. Patient was discharged on Sunday states he initially felt
better until last night he had worsening shortness of breath and lightheadedness. He also has pain in his left chest. He still has productive cough. He denies any fevers. Denies pain or swelling in his legs. He also has dizziness.
Medical History
Past Medical History
Past Medical History: Reports Other (chronic abnormal gait, amatory dysfunction)
Past Surgical History: Reports None
Social History
Tobacco: Non-smoker
Alcohol: None
Drug: None
Family History
Family History: Not pertinent
Allergies / Home Medications
Allergies reflects when Allergies were last updated in [facility].
Home Medications with original date entered in [facility]
Allergy/Medication List:
Allergies
Allergy/AdvReac Type Severity Reaction Status Date / Time
No Known Allergies Allergy Verified 09/16/24 11:33
Home Medications
benzonatate 100 mg capsule 200 mg (2 x 100 mg) PO TIDPRN PRN cough #50 caps 09/13/24
dexamethasone 4 mg tablet 6 mg (1.5 x 4 mg) PO DAILY #6 tabs 09/13/24
Review of Systems
-
History Source: Patient
A 12 point ROS was completed and negative except as noted: Yes
Constitutional: Reports No Symptoms
EENT: Reports No Symptoms
Respiratory: Reports See HPI
Cardiac: Reports No Symptoms
Abdomen/GI: Reports No Symptoms
: Reports No Symptoms
Musculoskeletal: Reports No Symptoms
Skin: Reports No Symptoms
Neurological: Reports No Symptoms
Endocrine: Reports No Symptoms
Hematologic/Lymphatic: Reports No Symptoms
Psych: Reports No Symptoms
Physical Exam
Vital Signs
Vital Signs
Temp Pulse Resp BP Pulse Ox
97.7 F 79 15 113/68 95
09/16/24 16:00 09/16/24 16:00 09/16/24 16:00 09/16/24 16:00 09/16/24 16:00
Physical Exam
General: Well Developed, Well Nourished and No Apparent Distress
HEENT: NormoCephalic, Moist mucous membranes and Atraumatic
Respiratory: Rales (LLL )
Cardiac: S1/S2 and Regular Rhythm; No Murmur or Rub
GI: Soft, Non Tender, Non Distended and Normal Bowel Sounds; No Organomegaly
Rectal: Deferred by Provider
Musculoskeletal: No Clubbing, No Cyanosis and No Edema
Skin: No Rash
Neuro: Nonfocal/grossly intact
Laboratory Results
-
09/16/24 12:08
09/16/24 12:08
Laboratory Results
Total Bilirubin 0.8 mg/dl (0.2-1.3) 09/16/24 12:08
AST 28 U/L (17-59) 09/16/24 12:08
ALT 32 U/L (0-50) 09/16/24 12:08
Alkaline Phosphatase 56 U/L (38-126) 09/16/24 12:08
Data Reviewed
-
Lab Data: Labs Reviewed by me
Old Records: Reviewed
Impression/Plan
-
IMPRESSION:
PLAN:
# Persistent pneumonia likely bacterial superinfection after recent COVID
-CTA chest shows consolidation extending from the left hilum into the left lower lobe consuming pneumonia, small left pleural effusion
-Recent cultures negative
-IV fluids
-Ceftriaxone/azithromycin
-Patient has 1 more day of dexamethasone
-Pulmonary consulted
Full code
DVT prophylaxis heparin
Regular diet
[2024-09-16] MEDS: NSS 1000 IV (18:36)
[2024-09-16] MEDS: HEPARIN 5000 UNITS SC (20:08)
[2024-09-17 07:00] VITALS: BP 139/79
[2024-09-17 07:43] LABS: Glucose - Point of Care 109 mg/dl (70-99)
[2024-09-17] MEDS: NSS 1000 IV ×2 (08:09→21:59)
[2024-09-17] MEDS: DECADRON 6 MG PO (08:10)
[2024-09-17] MEDS: HEPARIN 5000 UNITS SC (08:12)
[2024-09-17 08:24] LABS: Hematocrit 43.5 % (39.0-52.0); Hemoglobin 15.2 g/dL (13.0-18.0); Mean Corp Hgb Conc. 34.9 g/dL (33.0-37.0); Mean Corpuscular Hgb 29.2 pg (27.0-31.0); Mean Corpuscular Volume 83.5 fL (80.0-94.0); Platelet Count 432 10^3/uL (130-400); Red Blood Cell Count 5.21 10^6/uL (4.70-6.10); Red Cell Dist. Width 12.8 % (11.5-14.5); White Blood Cell Count 18.8 10^3/uL (4.8-10.8)
[2024-09-17 08:29] LABS: Mean Platelet Volume 10.7 fL (7.4-10.4)
--- NOTE | 2024-09-17 08:48 | W.PN.HOSP.TC ---
Today's Communication/Plan
-
see bold
Assessment / Plan
Assessment / Plan
HPI: 19-year-old male past medical history of chronic abnormal gait, amatory dysfunction presenting with shortness of breath and chest tightness. Patient recently discharged 2 days ago for sepsis secondary pneumonia secondary to COVID with possible
superinfection. He was treated with Decadron, ceftriaxone/azithromycin and Paxlovid. Patient was discharged on Sunday states he initially felt better until last night he had worsening shortness of breath and lightheadedness. He also has pain in
his left chest. He still has productive cough.
#Persistent pneumonia likely bacterial superinfection after recent COVID
COVID infection on 09/07/2024 - s/p paxlovid
CTA chest shows consolidation extending from the left hilum into the left lower lobe consuming pneumonia, small left pleural effusion
Recent cultures negative
Continue Rocephin/azithromycin day 1, finish last day of dexamethasone
Supportive care, trend fever and white count
#Thrombocytosis
Reactive
DVT prophylaxis�subcu Lovenox
Full code
Updated family at bedside 09/17
Total time spent to see the patient on the floor, examine the patient, review data and lab results, discuss treatment plan with patient, nursing staff around 39 minutes.
Physical Exam
General: Appears to not feel well, but in no acute distress
HEENT: Normocephalic, Atraumatic, EOMI, MMM
Respiratory: Left basilar Rales
Cardiac: Normal S1/S2, Regular Rate and Rhythm
GI: Soft, Nontender, Nondistended, Normal Bowel Sounds
Extremities: No Clubbing, Cyanosis, or Edema
Neuro: Nonfocal/Grossly Intact
Psych: Calm, Cooperative
Derm: No Visible lesions
Anticipated Discharge: 24 - 48 hours
Subjective/Interval History
-
Date of Service: September 17, 2024
Patient continues to be short of breath, coughing, with pleuritic chest pain, all improved from prior. Also has lightheadedness, improved from admission. No fever, no vomiting.
Objective Data
-
Labs:
Laboratory Results
09/17/24
07:06
WBC 18.8 H
Hgb 15.2
Hct 43.5
Plt Count 432 H
Sodium Pending
Potassium Pending
Chloride Pending
Carbon Dioxide Pending
BUN Pending
Creatinine Pending
Glucose Pending
Calcium Pending
Total Bilirubin Pending
AST Pending
ALT Pending
Alkaline Phosphatase Pending
Vital Signs:
Vital Signs
Temp Pulse Resp BP Pulse Ox
97.7 F 85 18 125/72 97
09/16/24 23:50 09/16/24 23:50 09/16/24 23:50 09/16/24 23:50 09/16/24 23:50
I&O
09/16/24 09/17/24 09/18/24
06:59 06:59 06:59
Intake Total 480 / 480
Balance 480 / 480
[2024-09-17 08:56] LABS: % Basophils 0.4 % (0-2); % Immature Granulocytes 6.5 % (0-0.5); % Lymphocytes 8.3 % (20.5-51.1); % Monocytes 7.3 % (1.7-9.3); % Neutrophils 77.5 % (42.2-75.2); Absolute Basophils 0.1 10^3/uL (0-0.2); Absolute Immature Granulocytes 1.2 10^3/uL (0-0.05); Absolute Lymphocytes 1.6 10^3/uL (1.2-3.4); Absolute Monocytes 1.4 10^3/uL (0.1-0.6); Absolute Neutrophils 14.6 10^3/uL (1.4-6.5); Nucleated Red Blood Cells % 0 % (-)
[2024-09-17 09:15] LABS: ALT (SGPT) 33 U/L (0-50); AST (SGOT) 25 U/L (17-59); Albumin 3.8 g/dl (3.5-5.0); Alkaline Phosphatase 54 U/L (38-126); Blood Urea Nitrogen 18 mg/dl (9-20); Calcium 8.5 mg/dl (8.4-10.2); Carbon Dioxide 18 mmol/L (22-30); Chloride 104 mmol/L (98-107); Estimated Creatinine Clearance > 125 ml/min; Glucose 107 mg/dl (70-99); Potassium 4.4 mmol/L (3.5-5.1); Sodium 136 mmol/L (135-145); Total Bilirubin 0.6 mg/dl (0.2-1.3); Total Protein 6.4 g/dl (6.3-8.2); eGFR > 60.00
[2024-09-17 11:00] VITALS: BP 116/69
--- NOTE | 2024-09-17 13:25 | CM ---
regional environmental manager reviewed patient's chart and met with patient and patient lives with his parents is independent with adl's and ambulation, per patient and [facility] all paperwork has been submitted for MA and patient is waiting on a determination, patient
is independent with adl's and ambulation.
Plan; Home with parents when stable. Patient is aware of the [facility] for treatment options and follow up till insurance comes in.
[2024-09-17] MEDS: MUCINEX 1200 MG PO ×2 (15:52→21:54)
[2024-09-17] MEDS: TYLENOL 650 MG PO (15:53)
[2024-09-17] MEDS: ZITHROMAX INFUSION 250 IV (15:53)
[2024-09-17] MEDS: STERILE WATER FOR INJECTION 10 ML IV (15:54)
[2024-09-17] MEDS: ROCEPHIN 1000 MG IV (15:58)
[2024-09-17] MEDS: LOVENOX 40 MG SC (16:02)
[2024-09-17 16:10] VITALS: BP 116/75
[2024-09-17 23:30] VITALS: BP 134/76
[2024-09-18 07:00] VITALS: BP 157/86
--- NOTE | 2024-09-18 09:39 | W.PN.HOSP.TC ---
Today's Communication/Plan
-
see bold
Assessment / Plan
Assessment / Plan
HPI: 19-year-old male past medical history of chronic abnormal gait, amatory dysfunction presenting with shortness of breath and chest tightness. Patient recently discharged 2 days ago for sepsis secondary pneumonia secondary to COVID with possible
superinfection. He was treated with Decadron, ceftriaxone/azithromycin and Paxlovid. Patient was discharged on Sunday states he initially felt better until last night he had worsening shortness of breath and lightheadedness. He also has pain in
his left chest. He still has productive cough.
#Persistent pneumonia likely bacterial superinfection after recent COVID
COVID infection on 09/07/2024 - s/p paxlovid
CTA chest shows consolidation extending from the left hilum into the left lower lobe consuming pneumonia, small left pleural effusion
Recent cultures negative
Continue Rocephin/azithromycin day 2, s/p dexamethasone x 10 days
Supportive care, trend fever and white count
#Thrombocytosis
Reactive
DVT prophylaxis�subcu Lovenox
Full code
Updated family at bedside 09/18
Total time spent to see the patient on the floor, examine the patient, review data and lab results, discuss treatment plan with patient, nursing staff around 38 minutes.
Physical Exam
General: Appears to not feel well, but in no acute distress
HEENT: Normocephalic, Atraumatic, EOMI, MMM
Respiratory: Left basilar Rales
Cardiac: Normal S1/S2, Regular Rate and Rhythm
GI: Soft, Nontender, Nondistended, Normal Bowel Sounds
Extremities: No Clubbing, Cyanosis, or Edema
Neuro: Nonfocal/Grossly Intact
Psych: Calm, Cooperative
Derm: No Visible lesions
Anticipated Discharge: 24 - 48 hours
Subjective/Interval History
-
Date of Service: September 18, 2024
SOB/cough improving. LH improving. No fever, no vomiting.
Objective Data
-
Labs:
Laboratory Results
09/18/24
07:59
Sodium Pending
Potassium Pending
Chloride Pending
Carbon Dioxide Pending
BUN Pending
Creatinine Pending
Glucose Pending
Calcium Pending
Vital Signs:
Vital Signs
Temp Pulse Resp BP Pulse Ox
97.5 F 73 16 134/76 96
09/17/24 23:30 09/17/24 23:30 09/17/24 23:30 09/17/24 23:30 09/17/24 23:30
I&O
09/17/24 09/18/24 09/19/24
06:59 06:59 06:59
Intake Total 480 / 480 3310 / 3310
Balance 480 / 480 3310 / 3310
[2024-09-18 09:41] LABS: Blood Urea Nitrogen 16 mg/dl (9-20); Calcium 8.3 mg/dl (8.4-10.2); Carbon Dioxide 20 mmol/L (22-30); Chloride 106 mmol/L (98-107); Estimated Creatinine Clearance > 125 ml/min; Glucose 91 mg/dl (70-99); Potassium 4.2 mmol/L (3.5-5.1); Sodium 135 mmol/L (135-145); eGFR > 60.00
[2024-09-18] MEDS: NSS 1000 IV (10:01)
[2024-09-18] MEDS: MUCINEX 1200 MG PO ×2 (10:01→20:42)
[2024-09-18] MEDS: FLUSH (NSS) 1 FLUSH IV ×2 (10:03→17:25)
[2024-09-18] MEDS: TESSALON PERLES 200 MG PO ×2 (10:05→20:42)
[2024-09-18] MEDS: DECADRON PO (10:31)
--- NOTE | 2024-09-18 13:26 | CM ---
Chart reviewed and plan is to home with family when stable, [facility] are following patient.
Plan; Home with family when stable.
[2024-09-18 15:00] VITALS: BP 118/70
[2024-09-18] MEDS: ZITHROMAX INFUSION 250 IV (17:25)
[2024-09-18] MEDS: LOVENOX 40 MG SC (17:26)
[2024-09-18] MEDS: STERILE WATER FOR INJECTION 10 ML IV (17:26)
[2024-09-18] MEDS: ROCEPHIN 1000 MG IV (17:30)
[2024-09-18 23:26] VITALS: BP 125/73
[2024-09-19] MEDS: NSS 1000 IV (01:44)
[2024-09-19 07:35] VITALS: BP 124/80
[2024-09-19] MEDS: MUCINEX 1200 MG PO ×2 (08:28→20:31)
[2024-09-19 08:46] LABS: Blood Urea Nitrogen 17 mg/dl (9-20); Calcium 8.2 mg/dl (8.4-10.2); Carbon Dioxide 19 mmol/L (22-30); Chloride 107 mmol/L (98-107); Estimated Creatinine Clearance > 125 ml/min; Glucose 69 mg/dl (70-99); Potassium 4.3 mmol/L (3.5-5.1); Sodium 137 mmol/L (135-145); eGFR > 60.00
--- NOTE | 2024-09-19 08:51 | W.PN.HOSP.TC ---
Today's Communication/Plan
-
Patient has had COVID since 09/07/2024, 3 days before his first positive COVID test on 09/10/2024
No need for isolation
Assessment / Plan
Assessment / Plan
HPI: 19-year-old male past medical history of chronic abnormal gait, amatory dysfunction presenting with shortness of breath and chest tightness. Patient recently discharged 2 days ago for sepsis secondary pneumonia secondary to COVID with possible
superinfection. He was treated with Decadron, ceftriaxone/azithromycin and Paxlovid. Patient was discharged on Sunday states he initially felt better until last night he had worsening shortness of breath and lightheadedness. He also has pain in
his left chest. He still has productive cough.
#Persistent pneumonia likely bacterial superinfection after recent COVID
COVID infection on 09/07/2024 - s/p paxlovid
CTA chest shows consolidation extending from the left hilum into the left lower lobe consuming pneumonia, small left pleural effusion
Recent cultures negative. No need for isolation
Patient has had COVID since 09/07/2024, 3 days before his first positive COVID test on 09/10/2024
Continue Rocephin/azithromycin day 3, s/p dexamethasone x 10 days
Start budesonide nebs twice daily
Supportive care, trend fever and white count
#Alkalosis, suspect respiratory
Monitor
#Thrombocytosis
Reactive
DVT prophylaxis�subcu Lovenox
Full code
Updated family at bedside 09/19
Total time spent to see the patient on the floor, examine the patient, review data and lab results, discuss treatment plan with patient, nursing staff around 37 minutes.
Physical Exam
General: Appears to not feel well, but in no acute distress
HEENT: Normocephalic, Atraumatic, EOMI, MMM
Respiratory: Left basilar Rales
Cardiac: Normal S1/S2, Regular Rate and Rhythm
GI: Soft, Nontender, Nondistended, Normal Bowel Sounds
Extremities: No Clubbing, Cyanosis, or Edema
Neuro: Nonfocal/Grossly Intact
Psych: Calm, Cooperative
Derm: No Visible lesions
Anticipated Discharge: Within 24 hours
Subjective/Interval History
-
Date of Service: September 19, 2024
Patient's shortness of breath at rest has resolved. His lightheadedness and dyspnea with activity has improved dramatically. Continues to cough. No fever, no vomiting.
Objective Data
-
Labs:
Laboratory Results
09/19/24
06:53
Sodium 137
Potassium 4.3
Chloride 107
Carbon Dioxide 19 L
BUN 17
Creatinine 0.7
Glucose 69 L
Calcium 8.2 L
Vital Signs:
Vital Signs
Temp Pulse Resp BP Pulse Ox
97.9 F 81 18 124/80 95
09/19/24 07:35 09/19/24 07:35 09/19/24 07:35 09/19/24 07:35 09/19/24 07:35
I&O
09/18/24 09/19/24 09/20/24
06:59 06:59 06:59
Intake Total 3310 / 3310 2850 / 2850
Balance 3310 / 3310 2850 / 2850
--- NOTE | 2024-09-19 12:41 | CM ---
Plan home with family when stable.
Plan; Home with parents when stable.
[2024-09-19] MEDS: TYLENOL 650 MG PO (13:04)
--- NOTE | 2024-09-19 14:55 | PN.CDI ---
CDI
- -
CDI:
Physician Documentation Request
Admit Date: 09/16/24 16:35
Dear Doctor Do,
Clinical Indicators:
Patient admitted with persistent pneumonia,likely bacterial superinfection.
09/16 ED report, 'Mildly increased respiratory effort'
Serum bicarbonate trend:
09/16/24 09/17/24 09/18/24
12:08 07:06 07:59
Carbon Dioxide 18 L 18 L 20 L
Based on the above, could you clarify in the progress notes, the appropriate diagnosis, if significant, that supports the above abnormalities and additional evaluation, monitoring and/or treatment rendered:
Respiratory Acidosis
Metabolic Acidosis
Abnormal lab value, clinically insignificant
Other
Use of terms such as suspected, likely, concern for, or probable (associated with a specific diagnosis that is being evaluated, monitored, or treated as if it exists) are acceptable and can be coded in the inpatient setting, when documented at the
time of discharge.
Thank you,
Viola Byers RN BSN
CDI Specialist
available via tiger text
Please use your independent medical judgment in providing your response.
[2024-09-19] MEDS: ZITHROMAX INFUSION 250 IV (15:04)
[2024-09-19 15:49] VITALS: BP 114/66
[2024-09-19] MEDS: PULMICORT INH (16:04)
[2024-09-19] MEDS: LOVENOX 40 MG SC (16:31)
[2024-09-19] MEDS: STERILE WATER FOR INJECTION 10 ML IV (16:31)
[2024-09-19] MEDS: ROCEPHIN 1000 MG IV (16:31)
[2024-09-19] MEDS: PULMICORT 0.5 MG INH (20:02)
[2024-09-19] MEDS: TESSALON PERLES 200 MG PO (20:38)
[2024-09-19 22:52] VITALS: BP 111/66
[2024-09-20 07:38] VITALS: BP 121/68
[2024-09-20] MEDS: PULMICORT 0.5 MG INH (07:46)
[2024-09-20 08:08] LABS: Blood Urea Nitrogen 17 mg/dl (9-20); Calcium 8.8 mg/dl (8.4-10.2); Carbon Dioxide 21 mmol/L (22-30); Chloride 103 mmol/L (98-107); Estimated Creatinine Clearance > 125 ml/min; Glucose 76 mg/dl (70-99); Potassium 4.5 mmol/L (3.5-5.1); Sodium 137 mmol/L (135-145); eGFR > 60.00
--- NOTE | 2024-09-20 08:12 | W.PN.HOSP.TC ---
Today's Communication/Plan
-
Stable for discharge today
Assessment / Plan
Assessment / Plan
HPI: 19-year-old male past medical history of chronic abnormal gait, amatory dysfunction presenting with shortness of breath and chest tightness. Patient recently discharged 2 days ago for sepsis secondary pneumonia secondary to COVID with possible
superinfection. He was treated with Decadron, ceftriaxone/azithromycin and Paxlovid. Patient was discharged on Sunday states he initially felt better until last night he had worsening shortness of breath and lightheadedness. He also has pain in
his left chest. He still has productive cough.
#Persistent pneumonia likely bacterial superinfection after recent COVID
COVID infection on 09/07/2024 - s/p paxlovid
CTA chest shows consolidation extending from the left hilum into the left lower lobe consuming pneumonia, small left pleural effusion
Recent cultures negative. No need for isolation
Patient has had COVID since 09/07/2024, 3 days before his first positive COVID test on 09/10/2024
Resolving on Rocephin and azithromycin for 4 days, s/p dexamethasone x 10 days
Medically stable for discharge on cefdinir and azithromycin for 3 more days, for a total of 7 days. He also was on antibiotics for 5 days prior to admission.
Follow-up with PCP in 1 week
#Alkalosis, suspect respiratory
Monitor
#Thrombocytosis
Reactive
DVT prophylaxis�subcu Lovenox
Full code
Updated family at bedside 09/20
Physical Exam
General: Appears to not feel well, but in no acute distress
HEENT: Normocephalic, Atraumatic, EOMI, MMM
Respiratory: Left basilar Rales
Cardiac: Normal S1/S2, Regular Rate and Rhythm
GI: Soft, Nontender, Nondistended, Normal Bowel Sounds
Extremities: No Clubbing, Cyanosis, or Edema
Neuro: Nonfocal/Grossly Intact
Psych: Calm, Cooperative
Derm: No Visible lesions
Anticipated Discharge: Today
Subjective/Interval History
-
Date of Service: September 20, 2024
Dyspnea with activity and lightheadedness with activity has resolved. No shortness of breath at rest. Continues to have a cough. No fever, no vomiting.
Objective Data
-
Labs:
Laboratory Results
09/20/24
06:28
Sodium 137
Potassium 4.5
Chloride 103
Carbon Dioxide 21 L
BUN 17
Creatinine 0.7
Glucose 76
Calcium 8.8
Vital Signs:
Vital Signs
Temp Pulse Resp BP Pulse Ox
98.2 F 75 18 121/68 98
09/20/24 07:38 09/20/24 07:38 09/20/24 07:38 09/20/24 07:38 09/20/24 07:38
I&O
09/19/24 09/20/24 09/21/24
06:59 06:59 06:59
Intake Total 2850 / 2850 2830 / 2830
Balance 2850 / 2850 2830 / 2830
[2024-09-20] MEDS: TESSALON PERLES 200 MG PO (09:15)
[2024-09-20] MEDS: MUCINEX 1200 MG PO (09:15)
--- NOTE | 2024-09-20 10:41 | W.DCSUMMARY ---
Discharge Summary
Discharge Data
Date of Admission: 09/16/24
Date of Discharge: 09/20/24
-
Pending Results: No
Hospital Course
Discharge diagnosis:
Persistent pneumonia
Recent coronavirus infection, first symptoms 09/07/2024
Shortness of breath with lightheadedness
Respiratory alkalosis
Thrombocytosis
Chest CT:
There is consolidation which extends from the left hilum into the left lower lobe consistent with pneumonia versus atelectasis. There is a small left pleural effusion.
There is no CT evidence of pulmonary embolism
Hospital course:
19-year-old male with a past medical history of chronic abnormal gait and ambulatory dysfunction who was recently discharged from the hospital on 09/14/2024 was readmitted for persistent pneumonia, shortness of breath, and lightheadedness. Chest CT
shows persistent left lower lobe pneumonia. Patient was treated with IV Rocephin and azithromycin.
Of note, patient tested positive for coronavirus 09/10/2024. He had symptoms 3 days prior, on 09/07/2024. He is out of isolation as of 09/18/2024. He completed 5 days of Paxlovid. He completed 10 days of dexamethasone.
After several days, his shortness of breath and lightheadedness resolved. He felt remarkably better. He is medically stable for discharge on cefdinir and azithromycin to complete a 7-day course. He needs to follow-up with his primary care doctor
in 1 week. Recommend repeat chest x-ray in 4 weeks to ensure resolution.
Disposition: Home self-care
Discharge planning: Required 39 minutes
Discharge Plan
-
Patient Disposition: Home (Routine Discharge)
Discharge Diagnosis/Procedures: Pneumonia, recent coronavirus infection
Condition: Good
Diet: Regular
Activity: As tolerated
Driving Restrictions: As prior to admission
Activity Restrictions/Additional Instructions:
You can take [id number] cough and cold medications to help your cough.
Zarbee's cough medicine with honey helps.
Follow-up with your primary care doctor in 1 week.
Recommend repeat chest x-ray at 4 weeks.
Referrals:
UNKNOWN - PT DOES,NOT KNOW [Family Provider] -
Prescriptions:
New
guaifenesin 600 mg Tablet Extended Release 12hr
1,200 mg PO Q12 14 Days Qty: 56 0RF
cefdinir 300 mg capsule
300 mg PO BID 3 Days Qty: 6 0RF
azithromycin 500 mg tablet
500 mg PO DAILY 3 Days Qty: 3 0RF
Continued
benzonatate 100 mg Capsule
200 mg PO TIDPRN PRN (Reason: cough) Qty: 120 0RF
Discontinued
dexamethasone 4 mg Tablet
6 mg PO DAILY Qty: 6 0RF
Patient Comments:
09/16/24: Have 1 dose left for tomorrow
Discharge Orders:
Discharge Patient (As Directed); Ordered 09/20/24
Ordered By: Jose Sahu
Discharge Date and Time
Discharge Date/Time: 09/20/24 11:37
Print Language: PERSIAN
[2024-09-20] MEDS: ZITHROMAX 500 MG PO (10:51)
[2024-09-20] MEDS: OMNICEF 300 MG PO (10:52)
--- NOTE | 2024-09-20 12:07 | CM ---
CM reviewed chart, patient for discharge, no needs.
Plan; home no needs.
== END 2024-09-20 11:37 | disposition home or self-care (01) | DRG 194 ==
LOC: 4 WEST ACU 16:35
PROVIDERS: Physician Assistant; ADMITTING PHYSICIAN Hospitalist; ATTENDING PHYSICIAN Family Medicine; EMERGENCY PHYSICIAN Emergency Medicine
DX: J15.9 Unspecified bacterial pneumonia (principal); E87.3 Alkalosis; D75.839 Thrombocytosis, unspecified; R26.89 Other abnormalities of gait and mobility; U09.9 Post COVID-19 condition, unspecified
CPT/HCPCS: 71046; 71275; 80048; 80053; 82962; 85025; 94640; 96365; 96375; 99285; Q9967

== ENCOUNTER 2025-02-13 21:55 | Emergency (ER) | payer MEDICAID, SELFPAY ==
[2025-02-13 22:01] VITALS: BP 153/98
--- NOTE | 2025-02-13 23:40 | ED.GENMED ---
History of Present Illness
General
Chief Complaint: Musculo-Skeletal Complaint
Source: patient
Time Seen by Provider: 02/13/25 23:38
History of Present Illness
History of Present Illness:
19-year-old male with no significant past medical history presenting to the emergency for evaluation after injuring his right thumb yesterday when he excellently fell and jammed his right thumb into the ground. Initially had some mild discomfort
but this morning noticed increased pain, edema and ecchymosis. Patient is right-hand dominant. Denies any previous history of injury or surgery.
Past History
Past History
ED Past Medical History: None; Negative Asthma, HTN, Hypercholesterolemia or NIDDM
ED Past Surgical History: None
Social History
Tobacco: Non-smoker
Alcohol: None
Drug: None
Personal: Single
Living: with family
Review of Systems
Review of Systems
All Other Systems: ROS reviewed and negative except as documented in HPI and ROS
Phy Exam
Physical Exam
Physical Exam:
GENERAL: Alert , in no apparent distress
EYE: conjunctiva clear
Head: Normocephalic atraumatic
NECK: Supple,
ENT: mmm.
LUNGS: no acute respiratory distress
NEUROLOGICAL: Alert and oriented
SKIN: Warm and dry, skin intact.
MUSCULOSKELETAL: Right hand: Right thumb has mild to moderate edema and ecchymosis along the volar aspect of the thumb. Most of the tenderness is around the base of the distal phalanx. Limited flexion and extension at the IP joint. Patient has no
pain with range of motion at the MCP joint. Extremity is otherwise warm and well-perfused.
PSYCH: Normal and appropriate interaction.
Scores
Heart Failure Risk
Heart Failure Risk Score: Not Applicable
Heart Score for Chest Pain Patients
STEMI patient?: Not applicable
Withdrawal Assessment of Alcohol
Withdrawal Assessment Completed?: Not applicable
Course
Orders/Labs/Results
Orders:
Orders
02/13/25 22:00
Thumb/Finger 2 View Rt [CR Finger(s)/thumb Min 2 Vw Rt] Urgent
Comment:
Reason For Exam: pain
Indicate Which Finger:: Thumb
Vital Signs
Initial and Last Documented VS:
Initial Vital Signs
Temp Pulse Resp BP Pulse Ox
98.6 F 81 16 153/98 100
02/13/25 22:01 02/13/25 22:01 02/13/25 22:01 02/13/25 22:01 02/13/25 22:01
Last Documented Vital Signs
Temp Pulse Resp BP Pulse Ox
98.6 F 81 16 153/98 100
02/13/25 22:01 02/13/25 22:01 02/13/25 22:01 02/13/25 22:01 02/13/25 22:01
Procedures
Splinting/Sling Placement
Right Thumb:
Procedure completed by: Radha
Pre-splint extermity exam: neurovascular intact
Type of splint: thumb spica
Splint material: other (3 inch Ortho-Glass)
Splint checked by provider?: Yes
Normal distal neurovascular exam?: Yes
MDM/Problems Addressed
Differential Diagnosis Includes:
Sprain, contusion, fracture
MDM/Problems Addressed:
19-year-old male presenting to the ER for evaluation of right thumb injury that occurred yesterday evening. Increased pain, swelling and ecchymosis today. X-ray ordered from triage shows a small nondisplaced fracture at the base of the distal
phalanx of the right thumb. Patient was placed in a thumb spica splint as above. Information for orthopedics provided. He is otherwise stable for discharge home. NSAIDs/Tylenol pain.
*Radiology
Radiology exam reviewed: preliminary read by ED provider (Fracture at the base of the distal phalanx right thumb)
*Pulse Oximetry
Patient hypoxic: no
*Critical Care Note
Total Time (30-74mins, 75-104mins- exclusive of procedures): Not Applicable
ED Attending Note
-
Portions of this chart may have been created with voice recognition software.� Occasional wrong word or��sound alike� substitutions may have occurred due to the inherent limitations of voice recognition software.
Discharge Plan
Departure
Patient Disposition: Home (Routine Discharge)
Date of Disposition: 02/13/25
Time of Disposition: 23:40
Patient with high blood pressure during this ER visit?: No
Discharge Problem:
Closed fracture of distal phalanx of right thumb
Instructions: Finger Fracture ED
Prescriptions:
No Action
guaifenesin 600 mg Tablet Extended Release 12hr
1,200 mg PO Q12 14 Days Qty: 56 0RF
cefdinir 300 mg capsule
300 mg PO BID 3 Days Qty: 6 0RF
azithromycin 500 mg tablet
500 mg PO DAILY 3 Days Qty: 3 0RF
benzonatate 100 mg Capsule
200 mg PO TIDPRN PRN (Reason: cough) Qty: 120 0RF
Referrals:
Luis Miguel Scott MD [Active] - (Ortho - Call for appointment on Sunday)
UNKNOWN - PT DOES,NOT KNOW [Family Provider] -
Interventions
Interventions:
*Risk Screen - Suicide Last Done: 02/13/25 22:01
*Neglect/Abuse Screening Last Done: 02/13/25 22:01
Discharge Date and Time
Print Language: MICRONESIAN
[2025-02-14 00:14] VITALS: BP 128/80
== END 2025-02-14 00:15 | disposition home or self-care (01) ==
LOC: EMR 21:55
PROVIDERS: EMERGENCY PHYSICIAN Emergency Medicine
DX: S62.524A Nondisplaced fracture of distal phalanx of right thumb, initial encounter for closed fracture (principal); W19.XXXA Unspecified fall, initial encounter
CPT/HCPCS: 99283; 29125; 73140